=== PATIENT | female | born 1955 | race Caucasian/White ===

== ENCOUNTER → 2018-10-03 | Outpatient (CLI) | payer BC ==
[2018-10-03 12:06] LABS: Anion Gap 8 mmol/L; Blood Urea Nitrogen 19 mg/dL (7-17); Carbon Dioxide 28 mmol/L (22-30); Chloride 103 mmol/L (98-107); Potassium 4.7 mmol/L (3.5-5.1); Sodium 139 mmol/L (137-145)
[2018-10-03 12:07] LABS: Partial Thromboplastin Time 27.4 sec (22.0-30.0)
[2018-10-03 12:12] LABS: Appearance,Urine Clear (Clear); Bilirubin,Urine Negative (Negative); Blood,Urine Negative (Negative); Color,Urine Light Yellow; Glucose,Urine (UA) Negative (Negative); Ketones,Urine Negative (Negative); Leukocyte Esterase,Urine Negative (Negative); Nitrite,Urine Negative (Negative); PH, Urine 7.5 (5.0-8.0); Protein,Urine Negative (Negative); Specific Gravity,Urine 1.007 (1.001-1.035); Urobilinogen,Urine <2.0 mg/dL (<2.0)
[2018-10-03 12:13] LABS: HCT 36.4 % (34.0-46.0); MCH 28.6 pg (25.0-35.0); MCV 86.7 fL (80.0-100.0); Platelet Count 342 k/uL (150-450); RDW 14.5 % (11.5-15.5); WBC 7.2 k/uL (3.8-10.6)
== END | disposition home or self-care (01) ==
LOC: LABPAT 11:14
PROVIDERS: ATTEND Orthopaedic Surgery
DX: Z01.812 Encounter for preprocedural laboratory examination (principal)
CPT/HCPCS: 36415; 80051; 81003; 82565; 84520; 85027; 85610; 85730; 87070

== ENCOUNTER 2018-10-22 07:00 | Inpatient (IN) | payer BC ==
[~2018-10-22 07:00] MED LIST: ACETAMINOPHEN TAB 500 MG TAB PO ONE; DEXAMETHASONE SOD PHOSPHATE 10 MG/ML 1 ML VIAL IV ONE; MELOXICAM 7.5 MG TAB PO ONE; MIDAZOLAM 2 MG/2 ML VIAL IV PRN; ONDANSETRON 4 MG/2 ML VIAL IVP ONE; ROPIVACAINE 246.25 MG, EPINEPHrine 0.5 MG, KETOROLAC 30 MG, cloNIDine HCL/PF 80 MCG, WA... MISCELLANE ONE; TRANEXAMIC ACID 1,000 MG in SODIUM CHLORIDE 0.9% 50 ML IVPB ONE; ceFAZolin IN SWFI 2 GM/20 ML SYRINGE IVP ONE; fentaNYL (PF) 50 MCG/ML 2 ML AMP IV PRN
[2018-10-22] MEDS: LACTATED RINGERS 1,000 ML IV SCH ×2 (08:08→22:45)
[2018-10-22] MEDS ORDERED: LIDOCAINE 1% 20 ML VIAL (10MG/ML) FOR IV START INTRADERMA ONE (08:08)
[2018-10-22 08:10] LABS: Glucose,Whole Blood 112 mg/dL (75-99)
[2018-10-22] MEDS ORDERED: DIAZEPAM 5 MG TAB PO PRN (09:04)
[2018-10-22] MEDS ORDERED: NALOXONE 0.4 MG/ML 1 ML VIAL IV PRN (09:04)
[2018-10-22] MEDS ORDERED: HYDROmorphone 0.5 MG/0.5 ML SYRINGE IVP PRN ×2 (09:04)
[2018-10-22] MEDS ORDERED: MAGNESIUM HYDROXIDE 2,400 MG/10 ML CUP PO PRN (09:04)
[2018-10-22] MEDS ORDERED: HYDROcodone/APAP 5-325MG 1 EACH TAB PO PRN (09:04)
[2018-10-22] MEDS ORDERED: BISACODYL 10 MG SUPP RECTAL PRN (09:04)
[2018-10-22] MEDS ORDERED: ONDANSETRON 4 MG/2 ML VIAL IVP PRN (09:04)
[2018-10-22] MEDS ORDERED: NA PHOS,M-B/NA PHOS,DI-BA 133 ML ENEMA RECTAL PRN (09:04)
[2018-10-22] MEDS ORDERED: ROPIVACAINE 1,100 MG, SODIUM CHLORIDE 0.9% 500 ML 330 ML MISCELLANE PRN ×2 (09:08)
--- NOTE | 2018-10-22 09:09 | P.ONQ ---
Anesthesiology Proc Note - PNB - Peripheral Nerve Block Performed Right Adductor Canal Infusion Time Out Performed: Yes Procedure Start Time: 08:30 Indication: Acute Post-Operative Pain Sedation Type: Sedate with meaningful contact maintained Preparation: Sterile Prep Position: Supine Catheter Depth at Skin (cm): 8 Catheter: Indwelling Needle Types: Other (see comment) (Tristan) Needle Size: 100mm (4") Needle Gauge: 18 Technique: Ultrasound Injectate: 0.5% Ropivacaine (see comment for volume) (20cc) Blood Aspirated: No Pain Paresthesia on Injection Noted: No Resistance on Injection: Normal Events: Uneventful and Well Tolerated
[2018-10-22] MEDS ORDERED: SODIUM CHLORIDE 0.9% 100 ML BAG ONE (09:24)
[2018-10-22] MEDS ORDERED: MIDAZOLAM 2 MG/2 ML VIAL ONE (09:24)
[2018-10-22] MEDS ORDERED: TRANEXAMIC ACID 1,000 MG/10 ML VIAL ONE (09:24)
[2018-10-22] MEDS ORDERED: ceFAZolin 3,000 MG in SODIUM CHLORIDE 0.9% IRRIGATIO 3,000 ML IRRIGATION ONE (09:26)
--- NOTE | 2018-10-22 10:42 | P.OP ---
Date of Procedure: 10/22/18 Preoperative Diagnosis: Severe osteoarthritis right knee Postoperative Diagnosis: Severe osteoarthritis right knee Procedure(s) Performed: Right total knee arthroplasty Implants: Barrett and Nephew Journey II CR Oxinium cruciate retaining femoral component size 5, right Barrett & Nephew Journey right nonporous tibial baseplate size 4 Barrett [employer] Nephew Journey II, XLPE Deep Dished articular insert, size 12 mm, Size 3 -4 right Barrett & Nephew Journey BCS resurfacing oval patellar component, 32 mm All components were cemented using Palacos R bone cement.. The articulation is Oxinium on polyethylene. Anesthesia: spinal Surgeon: Wojciech Segovia Regional Owner Operator Truck Driver #1: Kaye Green Estimated Blood Loss (ml): 25 Pathology: other (Bone and cartilage) Condition: stable Disposition: PACU Indications for Procedure: After failure of conservative treatment we discussed the surgical and nonsurgical treatment options at length. Patient wishes to proceed with a total knee arthroplasty. Complications specific to this procedure were discussed at length, including but not limited to infection, bleeding, stiffness , and nerve injury. Patient is aware of all these complications and informed consent was obtained Operative Findings: The operative findings are consistent with severe osteoarthritis of the right knee Description of Procedure: Patient was seen in the preoperative area consent was reviewed and operative site was marked with a skin marker. An adductor canal pain catheter was placed by anesthesia in the preoperative area. Patient was then brought to the operating room and given preoperative antibiotics intravenously. A spinal anesthetic was administered by the anesthesia department. A tourniquet was placed on the upper thigh and the lower extremity was prepped and draped in usual sterile fashion. A gram of transexamic acid was given. A universal timeout was then performed which confirmed the patient's name, surgical site, ALLERGIES, and consent. The lower extremity was then exsanguinated and tourniquet was inflated to 250 mmHg. A standard and anterior midline approach to the knee was performed. The skin and subcutaneous tissue was dissected down to the patellar tendon. A medial parapatellar arthrotomy was then performed. The knee was then extended, the patellar was everted, and the knee was again flexed. Anterior horns of both menisci were excised, and a release was performed to the posterior medial aspect of the knee. On gross visual inspection, there was complete loss of articular cartilage in the medial and patellofemoral joint spaces. There was also significant cartilage damage in the lateral compartment. There were multiple periarticular osteophytes which were then removed with a Ronguer. The femoral canal was then opened with the appropriate drill, and the intramedullary femoral cutting guide was then placed and set for 5 of valgus. The distal femoral cutting block was then pinned in place, and the distal femur was then cut. The cutting block was then removed and the cut was checked for flatness. Next, the sizing guide was then placed and set for 3 external rotation based off of the epicondylar axis and Whitesides line. After the femur was sized, the appropriate 4-in-1 cutting block was then pinned in place. The anterior condyles were cut without notching. The posterior and chamfer cuts were performed while protecting the collateral ligaments. The cutting block was then removed, and the femoral canal was plugged with autologous bone. Attention was then directed to the tibia. The remaining ACL was removed with a Ronguer, and the tibia was then gently subluxed forward with a large bent knee retractor. Any remaining menisci was excised. The posterior lateral corner was cauterized in order to cauterize the lateral geniculate artery. The extra medullary tibial cutting guide was then placed, set for the appropriate rotation , slope, and depth of resection. The proximal tibia cutting guide was then pinned in place. Proximal tibia was then cut and sized. Next trials were then placed with the appropriate-sized insert. The knee was able to fully extend and flex to 130 and was stable throughout all range of motion. The knee was then extended, patella everted. Patella was then measured, and then using an osteotomy guide, the patella was cut at the appropriate level. The patella was then measured and drilled and the patella trial was then placed. The knee was then taken through range of motion with the patella trial and the patella tracked normally. The knee was then extended patella trial was then removed and the patella was everted. Knee was then flexed and lug holes were drilled through the femoral trial and the femoral trial was then removed. The tibial was then exposed, and the tibial broach guide was then pinned in place after it was set for the appropriate rotation to allow for the most coverage without overhang. The tibia was then reamed and broached. The cut surfaces of bone were then irrigated with pulsatile lavage. The posterior structures were injected with the ropivacaine solution. The knee was also irrigated with Irrisept solution. The components were then opened, the cement was mixed, and the components were then cemented in place. The cement was allowed to harden with the knee in full extension. While the cement was hardening, the remaining soft tissues were then injected with a ropivacaine solution, which consisted of 246.25 mg of ropivacaine, 0.5 mg of epinephrine, 30 mg of Toradol, 80 g of clonidine, and 48.45 mL of sterile water, for a total of 100 mL of fluid injected. After the cemented hardened. The tourniquet was released, and hemostasis was obtained. A second gram of transexamic acid was given. The knee was again irrigated. The knee was again taken through range of motion and found to be stable throughout all range of motion of 0-130 , and the patella tracked normally. The fascia was then closed with #2 strata fix suture. The subcutaneous tissue was closed with 3-0 Vicryl and 3-0 strata fix. Dermabond glue was used for the skin and placed with the knee in flexion. The patient was placed in a sterile silver dressing. Patient was then transferred to recovery room in stable condition. The pastry assistant ISAIAS Aj was required due the complexity surgery and the need for a skilled medical surgical tech. She assisted in positioning, draping, retraction, and closure of the wound.
[2018-10-22] MEDS ORDERED: LACTATED RINGERS 1,000 ML IV ONE (11:06)
[2018-10-22 11:55] LABS: Glucose,Whole Blood 133 mg/dL (75-99)
--- NOTE | 2018-10-22 11:58 | XR ---
EXAMINATION TYPE: XR knee limited RT DATE OF EXAM: 10/22/2018 CLINICAL HISTORY: Postoperative evaluation Two views of the right knee are submitted. Identified are changes of total knee arthroplasty with femoral and tibial components appearing well seated. Postsurgical soft tissue changes are noted. Alignment is anatomic.
[2018-10-22] MEDS: SODIUM CHLORIDE 0.9% 1,000 ML IV SCH ×2 (14:03→22:47)
--- NOTE | 2018-10-22 15:09 | P.CONS ---
History of Present Illness - Reason for Consult Consult date: 10/22/18 Medical management Requesting physician: Wojciech Segovia - Chief Complaint Right knee pain - History of Present Illness 63-year-old female with PMH of hypertension, osteoarthritis, hyperlipidemia, diabetes mellitus, depression presents to [facility] for elective right total knee replacement. Patient was seen and examined after her surgery. She is postop day 0. No acute events overnight. Patient reports discomfort behind her right knee. She denies any fever or chills. She denies any chest pain, shortness of breath or palpitations. Review of Systems All systems: negative Past Medical History Past Medical History: Diabetes Mellitus, Fibromyalgia, GERD/Reflux, Hyperlipidemia, Hypertension, Rheumatoid Arthritis (RA) Additional Past Medical History / Comment(s): OSTEOPOROSIS. DEGNERATIVE JOINT DISEASE IN NECK/CHRONIC PAIN. NEUROPATHY IN HANDS & FEET. HISTORY OF FALLS WITH NERUOPATHY. BECAME SEPTIC POST TONSILITIS AND WAS IN ICU IN THE PAST. CARPAL TUNNEL SYNDROME. CERVICAL /LUMBAR RADICULOMOTHY. ANEMIA. RAYNAUD'S. INCONTINENT(USES PAD/PANTIES). History of Any Multi-Drug Resistant Organisms: None Reported Past Surgical History: Adenoidectomy, Breast Surgery, Hysterectomy, Tonsillectomy Additional Past Surgical History / Comment(s): LEFT CARPAL TUNNEL/MASS. JU BREAST BIOPSY/NEG. Past Anesthesia/Blood Transfusion Reactions: No Reported Reaction Past Psychological History: Anxiety, Depression Smoking Status: Current every day smoker Past Alcohol Use History: None Reported Additional Past Alcohol Use History / Comment(s): 3/4 PPD FOR TOO LONG. Past Drug Use History: Marijuana Additional Drug Use History / Comment(s): USES FOR PAIN CONTROL. - Past Family History Mother Family Medical History: No Reported History Medications and Allergies Home Medications Medication Instructions Recorded Confirmed Type Alendronate Sodium [Fosamax] 70 mg PO MO 10/19/18 10/22/18 History Aspirin 325 mg PO HS 10/19/18 10/22/18 History Baclofen [Lioresal] 10 mg PO TID 10/19/18 10/22/18 History DULoxetine HCL [Cymbalta] 30 mg PO QAM 10/19/18 10/22/18 History Enalapril [Vasotec] 5 mg PO HS 10/19/18 10/22/18 History Fenofibrate 160 mg PO HS 10/19/18 10/22/18 History Ferrous Sulfate [Iron] 325 mg PO DAILY 10/19/18 10/22/18 History Galcanezumab-Gnlm [Emgality] 120 mg IM Q30D 10/19/18 10/22/18 History Hydrochlorothiazide 25 mg PO QAM 10/19/18 10/22/18 History Labetalol [Trandate] 100 mg PO BID 10/19/18 10/22/18 History Omeprazole 20 mg PO HS 10/19/18 10/22/18 History Pregabalin [Lyrica] 150 mg PO TID 10/19/18 10/22/18 History Sertraline [Zoloft] 100 mg PO HS 10/19/18 10/22/18 History Simvastatin 40 mg PO HS 10/19/18 10/22/18 History metFORMIN HCL 1,000 mg PO BID 10/19/18 10/22/18 History Allergies Allergy/AdvReac Type Severity Reaction Status Date / Time Tetracyclines AdvReac Rash/Hives Verified 10/22/18 14:52 Physical Exam Vitals: Vital Signs Temp Pulse Pulse Resp BP BP Pulse Ox 10/22/18 13:56 16 10/22/18 12:15 76 16 151/85 94 L 10/22/18 12:03 74 16 151/79 97 10/22/18 11:45 68 16 142/71 96 10/22/18 11:30 86 18 143/84 96 10/22/18 11:15 89 16 130/74 10/22/18 11:12 98.2 F 88 20 130/74 94 L 10/22/18 08:50 66 16 120/69 98 10/22/18 07:30 98.7 F 73 16 126/65 96 Intake and Output 10/21/18 10/22/18 10/22/18 22:59 06:59 14:59 Intake Total 751 Output Total 25 Balance 726 Intake: IV 751 Output: Estimated Blood Loss 25 General: [non toxic], [no distress], [appears at stated age] Derm: [warm], [dry] Head: [atraumatic], [normocephalic], [symmetric] Eyes: [EOMI], [no lid lag], [anicteric sclera] Mouth: [no lip lesion], [mucus membranes moist] Cardiovascular: [S1S2 reg], [no murmur] Lungs: [CTA bilateral], [no rhonchi, no rales] , [no accessory muscle use] Abdominal: [soft], [ nontender to palpation], [no guarding], [no appreciable organomegaly] Ext: [no gross muscle atrophy], [no edema], [no contractures], [right knee wrapped] Neuro: [no focal neuro deficits] Psych: [Alert], [oriented], [appropriate affect] Results Labs: Abnormal Lab Results - Last 24 Hours (Table) 10/22/18 10/22/18 Range/Units 08:06 11:52 POC Glucose (mg/dL) 112 H 133 H (75-99) mg/dL Assessment and Plan Assessment: Assessment and Plan 1. Right knee osteoarthritis 2. Hypertension 3. Hyperlipidemia 4. Depression 5. Fibromyalgia 1. Patient is postop day 0. Pain management with [place], Dilaudid IV for severe pain. Cefazolin 2 g IV 2 doses. Continue meloxicam. Weightbearing as per orthopedic recommendations. Right upper extremity elevation. Ice pack as tolerated. Will follow PT, OT and orthopedic recommendations. 2. BP is 151/85. Continue hydrochlorothiazide 25 mg by mouth daily, labetalol 100 mg by mouth twice a day, lisinopril 10 mg by mouth at bedtime. Monitor vitals, adjust medications as necessary. 3. Continue fenofibrate 160 mg by mouth at bedtime. Continue aspirin 325 mg by mouth at bedtime, Lipitor 20 mg by mouth at bedtime for ASCVD risk. 4. Stable. Continue sertraline and Cymbalta. 5. Pain management as above. Continue Cymbalta 30 mg by mouth daily, baclofen 10 mg by mouth 3 times a day. Diazepam 2.5 mg by mouth 3 times a day as needed for muscle spasms. Patient admitted after right total knee replacement. Pain management as above. Will follow orthopedic recommendations. Thank you for the consult, please call for additional questions or concerns.
[2018-10-22] MEDS: PREGABALIN 75 MG CAP PO SCH ×2 (15:35→21:52)
[2018-10-22] MEDS: NICOTINE 14MG/24HR PATCH TRANSDERM SCH (15:36)
[2018-10-22] MEDS: BACLOFEN 10 MG TAB PO SCH ×2 (15:36→21:52)
[2018-10-22] MEDS: ceFAZolin IN SWFI 2 GM/20 ML SYRINGE IVP SCH (16:08)
[2018-10-22] MEDS: HYDROcodone/APAP 5-325MG 1 EACH TAB PO PRN (16:08)
[2018-10-22 17:15] LABS: Glucose,Whole Blood 198 mg/dL (75-99)
[2018-10-22] MEDS: HYDROmorphone 1 MG/ML 1 ML SYRINGE IVP PRN ×2 (18:00→22:45)
[2018-10-22 20:38] LABS: Glucose,Whole Blood 122 mg/dL (75-99)
[2018-10-22] MEDS ORDERED: FENOFIBRATE 160 MG TAB PO SCH (21:00)
[2018-10-22] MEDS ORDERED: ATORVASTATIN 20 MG TAB PO SCH (21:00)
[2018-10-22] MEDS ORDERED: ASPIRIN 325 MG TAB PO SCH (21:00)
[2018-10-22] MEDS ORDERED: SENNOSIDES-DOCUSATE SODIUM 1 EACH TAB PO SCH (21:00)
[2018-10-22] MEDS ORDERED: LISINOPRIL 10 MG TAB PO SCH (21:00)
[2018-10-22] MEDS ORDERED: SERTRALINE 100 MG TAB PO SCH (21:00)
[2018-10-22] MEDS: LABETALOL 100 MG TAB PO SCH (21:51)
[2018-10-22] MEDS: INSULIN ASPART 100 UNIT/ML 1 ML 10 ML VIAL SQ SCH (21:51)
[2018-10-22] MEDS: ASPIRIN 325 MG TAB PO SCH (21:52)
[2018-10-22] MEDS ORDERED: CALCIUM CARBONATE LIQUID 500 MG/5 ML CUP PO PRN (22:57)
[2018-10-22] MEDS: PANTOPRAZOLE 40 MG TABLET PO SCH (23:33)
[2018-10-23] MEDS: ceFAZolin IN SWFI 2 GM/20 ML SYRINGE IVP SCH (02:10)
[2018-10-23] MEDS: HYDROcodone/APAP 5-325MG 1 EACH TAB PO PRN (02:11)
[2018-10-23] MEDS: hydrOXYzine PAMOATE 25 MG CAP PO PRN ×2 (02:11→13:27)
[2018-10-23] MEDS: HYDROmorphone 1 MG/ML 1 ML SYRINGE IVP PRN ×2 (04:34→07:27)
[2018-10-23 06:52] LABS: Glucose,Whole Blood 122 mg/dL (75-99)
[2018-10-23 06:53] VITALS: BP 91/64; PULSE 67; RESP 18; TEMP 97.8
[2018-10-23] MEDS: PREGABALIN 75 MG CAP PO SCH (06:53)
[2018-10-23] MEDS: BACLOFEN 10 MG TAB PO SCH (06:54)
[2018-10-23] MEDS: ASPIRIN 325 MG TAB PO SCH (06:54)
[2018-10-23] MEDS: LABETALOL 100 MG TAB PO SCH (06:55)
[2018-10-23] MEDS: PANTOPRAZOLE 40 MG TABLET PO SCH (06:58)
[2018-10-23] MEDS: INSULIN ASPART 100 UNIT/ML 1 ML 10 ML VIAL SQ SCH ×2 (06:59→11:47)
[2018-10-23] MEDS: NICOTINE 14MG/24HR PATCH TRANSDERM SCH (06:59)
--- NOTE | 2018-10-23 06:59 | P.PN ---
Progress Note - Text Progress Note Date: 10/23/18 Postoperative day # 1 status post right total knee arthroplasty, under spinal anesthesia, and adductor canal catheter placed for postoperative analgesia, currently at ropivacaine 0.2% 10 mL per hour and continuous infusion, patient requiring IV Dilaudid pain medication for breakthrough pain. Assessment and plan= Acute postoperative pain, adductor canal catheter for pain control, pain is controlled we'll continue the same management.
[2018-10-23 07:29] LABS: Basophils % (A) 0 %; Eosinophils # (A) 0.1 k/uL (0-0.7); Eosinophils % (A) 1 %; HCT 27.4 % (34.0-46.0); Lymphocytes # (A) 2.1 k/uL (1.0-4.8); Lymphocytes % (A) 24 %; MCH 28.6 pg (25.0-35.0); MCHC 32.6 g/dL (31.0-37.0); MCV 87.7 fL (80.0-100.0); Mean Platelet Volume 7.3; Monocytes # (A) 0.6 k/uL (0-1.0); Monocytes % (A) 7 %; Neutrophils # (A) 5.7 k/uL (1.3-7.7); Neutrophils % (A) 66 %; Platelet Count 293 k/uL (150-450); RBC 3.13 m/uL (3.80-5.40); RDW 14.3 % (11.5-15.5); WBC 8.6 k/uL (3.8-10.6)
[2018-10-23 07:51] LABS: HGB 8.9 gm/dL (11.4-16.0)
[2018-10-23] MEDS ORDERED: HYDROCHLOROTHIAZIDE 25 MG TAB PO SCH (09:00)
[2018-10-23] MEDS ORDERED: MELOXICAM 7.5 MG TAB PO SCH (09:00)
[2018-10-23] MEDS ORDERED: DULoxetine HCL 30 MG CAPSULE.DR PO SCH (09:00)
[2018-10-23] MEDS ORDERED: HYDROcodone/APAP 7.5-325MG 1 EACH TAB PO PRN ×2 (09:25)
--- NOTE | 2018-10-23 09:30 | P.DS ---
Providers Date of admission: 10/22/18 07:19 Expected date of discharge: 10/23/18 Attending physician: Wojciech Segovia Consults: 10/22/18 09:04 Consult Physician Routine Consulting Provider: Jonn Day Consult Reason/Comments: medical management Do you want consulting provider notified?: Yes 10/22/18 11:24 Consult Physician Routine Consulting Provider: Kvng Santana Consult Reason/Comments: medical management Do you want consulting provider notified?: Already Contacted Primary care physician: Jonn Day - Discharge Diagnosis(es) (1) Primary osteoarthritis of right knee Current Visit: Yes Status: Acute (2) Status post total right knee replacement Current Visit: Yes Status: Acute Hospital Course: This is a 63-year-old female with known history of degenerative arthritis of the right knee. The patient presents for evaluation. After discussion and consideration patient elects to proceed with total knee arthroplasty. The patient is seen preoperatively by Dr. Segovia and medically cleared for surgery by their primary care physician. Patient is admitted to [facility] on 10/22/2018 for total knee arthroplasty. The procedures performed without complication or sequelae. The patient is doing well postoperatively. Labs and vital signs are stable on day of discharge. On day of discharge patient's knee incision is healing well. There is minimal erythema. There is no drainage noted at this time. There is minimal soft tissue swelling to the knee. Patient has full foot and ankle motion without difficulty or pain. Neurovascular status to the right lower extremity is intact. Patient is discharged home in good condition. Please see med rec for accurate list of home medications. Plan - Discharge Summary Discharge Rx Participant: Yes New Discharge Prescriptions: New Aspirin 325 mg PO BID #60 tab HYDROcodone/APAP 7.5-325MG [[place] 7.5-325] 1 - 2 tab PO Q6H PRN #56 tab PRN Reason: Pain hydrOXYzine PAMOATE [Vistaril] 25 mg PO Q6H PRN #30 capsule PRN Reason: Pain No Action metFORMIN HCL 1,000 mg PO BID Pregabalin [Lyrica] 150 mg PO TID Baclofen [Lioresal] 10 mg PO TID Ferrous Sulfate [Iron] 325 mg PO DAILY Aspirin 325 mg PO HS Sertraline [Zoloft] 100 mg PO HS DULoxetine HCL [Cymbalta] 30 mg PO QAM Omeprazole 20 mg PO HS Hydrochlorothiazide 25 mg PO QAM Enalapril [Vasotec] 5 mg PO HS Alendronate Sodium [Fosamax] 70 mg PO MO Simvastatin 40 mg PO HS Fenofibrate 160 mg PO HS Labetalol [Trandate] 100 mg PO BID Galcanezumab-Gnlm [Emgality] 120 mg IM Q30D Discharge Medication List Alendronate Sodium [Fosamax] 70 mg PO MO 10/19/18 [History] Aspirin 325 mg PO HS 10/19/18 [History] Baclofen [Lioresal] 10 mg PO TID 10/19/18 [History] DULoxetine HCL [Cymbalta] 30 mg PO QAM 10/19/18 [History] Enalapril [Vasotec] 5 mg PO HS 10/19/18 [History] Fenofibrate 160 mg PO HS 10/19/18 [History] Ferrous Sulfate [Iron] 325 mg PO DAILY 10/19/18 [History] Galcanezumab-Gnlm [Emgality] 120 mg IM Q30D 10/19/18 [History] Hydrochlorothiazide 25 mg PO QAM 10/19/18 [History] Labetalol [Trandate] 100 mg PO BID 10/19/18 [History] Omeprazole 20 mg PO HS 10/19/18 [History] Pregabalin [Lyrica] 150 mg PO TID 10/19/18 [History] Sertraline [Zoloft] 100 mg PO HS 10/19/18 [History] Simvastatin 40 mg PO HS 10/19/18 [History] metFORMIN HCL 1,000 mg PO BID 10/19/18 [History] Aspirin 325 mg PO BID #60 tab 10/23/18 [Rx] HYDROcodone/APAP 7.5-325MG [[place] 7.5-325] 1 - 2 tab PO Q6H PRN #56 tab [Rx] hydrOXYzine PAMOATE [Vistaril] 25 mg PO Q6H PRN #30 capsule 10/23/18 [Rx] Follow up Appointment(s)/Referral(s): Wojciech Segovia DO [Doctor of Osteopathic Medicine] - 2 Weeks Ambulatory/Diagnostic Orders: Continuous Passive Motion (CPM) Machine [DME.AMB1] Time Frame: 3 Weeks, Location : None Selected Activity/Diet/Wound Care/Special Instructions: Weightbearing as tolerated with a walker. CPM 5-6h daily. Leave dressing intact. May be removed by home care nurse in 10 days. May shower with dressing on. Please follow up with [facility] and call with any questions or concerns, . Discharge Disposition: HOME WITH HOME HEALTH SERVICES
[2018-10-23 11:36] LABS: Glucose,Whole Blood 85 mg/dL (75-99)
[2018-10-23] MEDS ORDERED: FERROUS SULFATE 325 MG TAB PO SCH (12:00)
== END 2018-10-23 13:32 | disposition home health service (06) | DRG 470 ==
LOC: 2ORMAIN 07:19 → 4SSUR 11:18
PROVIDERS: ADMIT Orthopaedic Surgery; ATTEND Orthopaedic Surgery
PROC: 0SRC069 Replacement of Right Knee Joint with Oxidized Zirconium on Polyethylene Synthetic Substitute, Cemented, Open Approach (ICD-10-PCS; principal; 2018-10-22 09:15)
DX: M17.11 Unilateral primary osteoarthritis, right knee (principal); E11.42 Type 2 diabetes mellitus with diabetic polyneuropathy; M06.9 Rheumatoid arthritis, unspecified; M79.7 Fibromyalgia; I10 Essential (primary) hypertension; E78.5 Hyperlipidemia, unspecified; M81.0 Age-related osteoporosis without current pathological fracture; G89.29 Other chronic pain; M54.16 Radiculopathy, lumbar region; I73.00 Raynaud's syndrome without gangrene; R32 Unspecified urinary incontinence; F41.8 Other specified anxiety disorders; F32.9 Major depressive disorder, single episode, unspecified; K21.9 Gastro-esophageal reflux disease without esophagitis; H91.90 Unspecified hearing loss, unspecified ear; R26.81 Unsteadiness on feet; F41.9 Anxiety disorder, unspecified; G25.81 Restless legs syndrome; F17.210 Nicotine dependence, cigarettes, uncomplicated; M47.22 Other spondylosis with radiculopathy, cervical region; R63.5 Abnormal weight gain; Z68.27 Body mass index [BMI] 27.0-27.9, adult; Z91.81 History of falling; Z90.49 Acquired absence of other specified parts of digestive tract; Z90.710 Acquired absence of both cervix and uterus; Z98.890 Other specified postprocedural states; Z79.82 Long term (current) use of aspirin; Z83.3 Family history of diabetes mellitus; Z79.899 Other long term (current) drug therapy; Z79.84 Long term (current) use of oral hypoglycemic drugs; Z79.83 Long term (current) use of bisphosphonates; Z88.1 Allergy status to other antibiotic agents; Z82.49 Family history of ischemic heart disease and other diseases of the circulatory system
CPT/HCPCS: 85025; 88300

== ENCOUNTER → 2018-10-31 | Outpatient (CLI) | payer BC ==
--- NOTE | 2018-10-31 11:04 | US ---
EXAMINATION TYPE: US venous doppler duplex LE RT DATE OF EXAM: 10/31/2018 10:48 AM COMPARISON: NONE CLINICAL HISTORY: M25.561 PAIN IN RT KNEE. S/P total knee 10/22/2017 SIDE PERFORMED: Right TECHNIQUE: The lower extremity deep venous system is examined utilizing real time linear array sonog efrain with graded compression, doppler sonography and color-flow sonography. VESSELS IMAGED: External Iliac Vein (EIV) Common Femoral Vein Deep Femoral Vein Greater Saphenous Vein * Femoral Vein Popliteal Vein Small Saphenous Vein * Proximal Calf Veins (* superficial vessels) Physician requested greater saphenous and posterior tibials also, no thrombus. Right Leg: Negative for DVT IMPRESSION: No evidence of DVT.
== END | disposition home or self-care (01) ==
LOC: RADUSWWP 10:23
PROVIDERS: ATTEND Orthopaedic Surgery
DX: Z47.1 Aftercare following joint replacement surgery (principal); M25.561 Pain in right knee; E10.9 Type 1 diabetes mellitus without complications; I10 Essential (primary) hypertension; F17.200 Nicotine dependence, unspecified, uncomplicated; Z96.651 Presence of right artificial knee joint

== ENCOUNTER 2020-05-06 06:59 | Day surgery (SDC) | payer MEDICARE, BC ==
[2020-04-30 10:10] VITALS: BMI 25.8
[~2020-05-06 06:59] MED LIST changes: -ACETAMINOPHEN TAB 500 MG TAB PO ONE; +CYCLOPENTOLATE 1% OPHTH SOLN 2 ML BTL OP ONE; -DEXAMETHASONE SOD PHOSPHATE 10 MG/ML 1 ML VIAL IV ONE; +LACTATED RINGERS 1,000 ML IV SCH; -MELOXICAM 7.5 MG TAB PO ONE; -MIDAZOLAM 2 MG/2 ML VIAL IV PRN; +MOXIFLOXACIN HCL 0.5% DROPS 3 ML BTL OP ONE; -ONDANSETRON 4 MG/2 ML VIAL IVP ONE; +PHENYLEPHRINE 2.5% OPHTH DRP 2ML OP NR; -ROPIVACAINE 246.25 MG, EPINEPHrine 0.5 MG, KETOROLAC 30 MG, cloNIDine HCL/PF 80 MCG, WA... MISCELLANE ONE; +TETRACAINE 0.5% OPHTH (PF) DROPS 4 ML BTL OP ONE; +TIMOLOL 0.5% OPHTH DROPS 5 ML BTL OP ONE; -TRANEXAMIC ACID 1,000 MG in SODIUM CHLORIDE 0.9% 50 ML IVPB ONE; -ceFAZolin IN SWFI 2 GM/20 ML SYRINGE IVP ONE; -fentaNYL (PF) 50 MCG/ML 2 ML AMP IV PRN
[2020-05-06 07:37] VITALS: TEMP 97.3
[2020-05-06 07:49] LABS: Glucose,Whole Blood 105 mg/dL (75-99)
[2020-05-06] MEDS ORDERED: LACTATED RINGERS 1,000 ML IV ONE ×2 (08:00→08:30)
[2020-05-06] MEDS ORDERED: MIDAZOLAM 2 MG/2 ML VIAL ONE (08:18)
[2020-05-06] MEDS ORDERED: TRYPAN BLUE 0.06% SYRINGE 0.5 ML SYRINGE INTRAOCULA ONE (08:20)
[2020-05-06] MEDS ORDERED: LIDOCAINE 1% (PF) 10MG/ML VIAL SQ ONE (08:20)
[2020-05-06] MEDS ORDERED: DUOVISC KIT (GREEN BOX) INTRAOCULA ONE (08:20)
[2020-05-06] MEDS ORDERED: BALANCED SALT IRRIG SOLN COMB2 15 ML IRRIG.SOLN INTRAOCULA ONE (08:20)
[2020-05-06] MEDS ORDERED: EPINEPHrine (PF) 0.3 ML in BALANCED SALT IRRIG SOLN COMB2 500 ML IRRIGATION ONE (08:31)
--- NOTE | 2020-05-06 08:44 | P.OP ---
Date of Procedure: 05/06/20 Preoperative Diagnosis: NS & CS Postoperative Diagnosis: same Procedure(s) Performed: PIOL, OD Implants: MX60 21.50 Anesthesia: MAC Surgeon: Pelon Ahmadi Pathology: none sent Condition: stable Disposition: same day Indications for Procedure: blurry vision Operative Findings: no complications
[2020-05-06 08:51] VITALS: RESP 18
[2020-05-06 09:10] VITALS: BP 161/94; PULSE 78
--- NOTE | 2020-05-07 01:42 | OP ---
OPERATIVE REPORT DATE OF SURGERY: 05/06/2020. SURGEON: Pelon Ahmadi MD PREOPERATIVE DIAGNOSIS: Nuclear sclerosis, cortical sclerosis. POSTOPERATIVE DIAGNOSIS: Nuclear sclerosis, cortical sclerosis. OPERATION: Phacoemulsification of cataract and intraocular lens implant to the right eye. ESTIMATED BLOOD LOSS: Zero. SPECIMEN TAKEN: None. NARRATIVE: After obtaining the appropriate consent, the patient was brought to the Operating Room where the patient was placed under cardiac monitoring and prepped and draped in the usual sterile manner. At the 11 o'clock position a 15 degree super sharp blade was used to create a paracentesis followed by instillation of 1% Xylocaine MPF 50:50 mix with BSS into the anterior chamber. This was followed by Duovisc to stabilize the anterior chamber. At the 9 o'clock position a self-sealing corneal flap incision was created using 2.8 mm janice keratome. A cystotome was used to initiate a continuous tear capsulorrhexis which was completed with the Utrata forceps. A Binkhorst cannula was used to hydrodissect the lens nucleus followed by hydrodelineation. Phacoemulsification of the lens was performed utilizing phaco chop in 15.66 seconds at 21% power. The remaining cortical material was removed using the irrigation aspiration mode followed by additional 1% Xylocaine MPF into the anterior chamber followed by viscoelastic to stabilize the capsular bag. A Bausch and Lomb MX60E 21.5 diopters posterior chamber lens was placed into the capsular bag without difficulty. The remaining viscoelastic material was removed from the anterior chamber with the irrigation/aspiration. Balanced salt solution was used to normalize the intraocular pressure. The incision was checked for watertight integrity. The patient then received two drops of 0.5% timolol followed by two drops Vigamox, was lightly patched and shielded in the usual manner. There were no complications from the procedure. The patient tolerated the procedure well and was returned to recovery in good condition. MMODL / IJN: [id number] /
== END 2020-05-06 09:33 | disposition home or self-care (01) ==
LOC: OR 06:59
PROVIDERS: ATTEND Ophthalmology
DX: H25.13 Age-related nuclear cataract, bilateral (principal); H25.013 Cortical age-related cataract, bilateral; H52.13 Myopia, bilateral; H52.4 Presbyopia; E11.319 Type 2 diabetes mellitus with unspecified diabetic retinopathy without macular edema; E11.42 Type 2 diabetes mellitus with diabetic polyneuropathy; I10 Essential (primary) hypertension; F41.9 Anxiety disorder, unspecified; F32.9 Major depressive disorder, single episode, unspecified; G43.909 Migraine, unspecified, not intractable, without status migrainosus; L40.50 Arthropathic psoriasis, unspecified; M06.9 Rheumatoid arthritis, unspecified; M19.90 Unspecified osteoarthritis, unspecified site; M79.7 Fibromyalgia; Z79.82 Long term (current) use of aspirin; Z79.84 Long term (current) use of oral hypoglycemic drugs; Z79.899 Other long term (current) drug therapy; K21.9 Gastro-esophageal reflux disease without esophagitis; D64.9 Anemia, unspecified; Z83.511 Family history of glaucoma; Z83.518 Family history of other specified eye disorder; Z82.61 Family history of arthritis; Z83.3 Family history of diabetes mellitus; Z82.49 Family history of ischemic heart disease and other diseases of the circulatory system; Z88.1 Allergy status to other antibiotic agents; J44.9 Chronic obstructive pulmonary disease, unspecified; F17.210 Nicotine dependence, cigarettes, uncomplicated; E78.5 Hyperlipidemia, unspecified; Z90.710 Acquired absence of both cervix and uterus; Z90.89 Acquired absence of other organs; Z98.890 Other specified postprocedural states
CPT/HCPCS: 66984; C1780; J2250; J0171; J2001

== ENCOUNTER 2020-06-17 06:03 | Day surgery (SDC) | payer MEDICARE, BC ==
[2020-06-16 10:07] VITALS: BMI 24.7
[~2020-06-17 06:03] MED LIST changes: +DEXAMETHASONE SOD PHOSPHATE 10 MG/ML 1 ML VIAL IV ONE; +MIDAZOLAM 2 MG/2 ML VIAL IV PRN; +ONDANSETRON 4 MG/2 ML VIAL IVP ONE; +fentaNYL (PF) 50 MCG/ML 2 ML AMP IV PRN; +fentaNYL (PF) 50 MCG/ML 2 ML AMP IVP PRN
[2020-06-17 06:53] VITALS: RESP 16
[2020-06-17] MEDS ORDERED: LIDOCAINE 1% (10MG/ML) FOR IV START INTRADERMA ONE (07:07)
[2020-06-17 07:14] LABS: Glucose,Whole Blood 100 mg/dL (75-99)
[2020-06-17] MEDS ORDERED: fentaNYL (PF) 50 MCG/ML 2 ML AMP ONE (07:25)
[2020-06-17] MEDS ORDERED: MIDAZOLAM 2 MG/2 ML VIAL ONE (07:25)
[2020-06-17] MEDS ORDERED: EPINEPHrine (PF) 0.3 ML in BALANCED SALT IRRIG SOLN COMB2 500 ML IRRIGATION ONE (07:41)
[2020-06-17] MEDS ORDERED: BALANCED SALT IRRIG SOLN COMB2 15 ML IRRIG.SOLN INTRAOCULA ONE (07:43)
[2020-06-17] MEDS ORDERED: DUOVISC KIT (GREEN BOX) INTRAOCULA ONE (07:43)
[2020-06-17] MEDS ORDERED: LIDOCAINE 1% (PF) 10MG/ML VIAL MISCELLANE ONE (07:44)
--- NOTE | 2020-06-17 08:00 | P.OP ---
Date of Procedure: 06/17/20 Preoperative Diagnosis: NS & CS Postoperative Diagnosis: same Procedure(s) Performed: PIOL, OS Implants: MX60 21.00 Anesthesia: MAC Surgeon: Pelon Ahmadi Pathology: none sent Condition: stable Disposition: same day Indications for Procedure: blurry vision Operative Findings: No complications
[2020-06-17 08:22] VITALS: BP 143/79; PULSE 65
--- NOTE | 2020-06-18 06:20 | OP ---
OPERATIVE REPORT DATE OF PROCEDURE: 06/17/2020 PREOPERATIVE DIAGNOSIS: Nuclear sclerosis and cortical sclerosis. POSTOPERATIVE DIAGNOSIS: Nuclear sclerosis and cortical sclerosis. OPERATION: Phacoemulsification of cataract and Crystalens implant of the left eye. NARRATIVE: After obtaining the appropriate consent, the patient was brought to the operating room. There the patient was placed under cardiac monitoring, prepped and draped in the usual sterile manner. The patient was approached from the left temporal side. The mm Hussain ring inked in gentian vivian was placed centrally on the cornea. At the 11 o'clock position, a 1.1 mm keratome was used to create a paracentesis port. Through this opening, 1% Xylocaine MPF 50/50 mix with balanced salt solution was injected into the anterior chamber. This was followed by stabilization of the anterior chamber with Duovisc viscoelastic. At the 9 o'clock position, a 2.75 mm janice keratome was used to create a self-scaling corneal flap incision in a Langerman fashion. Through this opening, a cystotome was introduced to begin a continuous tear capsulorrhexis which was completed using the Utrata forceps. Care was taken to ensure that the capsulorrhexis was at least the size of the deondre on the anterior cornea. Hydrodissection and hydrodelineation of the lens was accomplished with balanced salt solution. Phacoemulsification of the lens utilizing phaco chop was accomplished in 14.64 Seconds at 21% power. Addition Xylocaine MPF was instilled into the anterior chamber. This was followed by removal of the remaining cortex under irrigation and aspiration along with careful polishing of the posterior capsule in a capsule vacuum mode. Additional Duovisc viscoelastic was then used to stabilize the capsular bag, and the Bausch and Lomb MX60E 21.0 diopters. Intraocular lens was injected into the capsular bag without difficulty. The lens was rotated 270 degrees so that the haptics resided at the 6 and 12 o'clock positions, and all remaining viscoelastic was then removed from within the capsular bag and around the anterior chamber. The eye was brought to normal intraocular pressure through the paracentesis port along with slight hydration of the incision sites. Watertight integrity was confirmed using a fluorescein strip. The patient then received 2 drops of 0.5% timolol followed by 2 drops of Vigamox and 2 drops of 1% atropine. The patient was then lightly patched and shielded in the usual manner. There was no complications from the procedure. The patient tolerated the procedure well and was returned to outpatient recovery in good condition. MMANDREA / CRISTAL: [id number] /
== END 2020-06-17 08:38 | disposition home or self-care (01) ==
LOC: OR 06:03
PROVIDERS: ATTEND Ophthalmology
DX: H25.12 Age-related nuclear cataract, left eye (principal); H25.012 Cortical age-related cataract, left eye; H52.13 Myopia, bilateral; H52.4 Presbyopia; I10 Essential (primary) hypertension; E78.5 Hyperlipidemia, unspecified; E11.319 Type 2 diabetes mellitus with unspecified diabetic retinopathy without macular edema; G43.909 Migraine, unspecified, not intractable, without status migrainosus; M19.90 Unspecified osteoarthritis, unspecified site; M06.9 Rheumatoid arthritis, unspecified; L40.50 Arthropathic psoriasis, unspecified; M79.7 Fibromyalgia; E11.42 Type 2 diabetes mellitus with diabetic polyneuropathy; F17.210 Nicotine dependence, cigarettes, uncomplicated; F41.9 Anxiety disorder, unspecified; F32.9 Major depressive disorder, single episode, unspecified; Z88.1 Allergy status to other antibiotic agents; Z79.84 Long term (current) use of oral hypoglycemic drugs; Z79.82 Long term (current) use of aspirin; Z79.899 Other long term (current) drug therapy; Z90.710 Acquired absence of both cervix and uterus; Z90.89 Acquired absence of other organs; Z96.651 Presence of right artificial knee joint; Z98.890 Other specified postprocedural states; Z98.41 Cataract extraction status, right eye; Z96.1 Presence of intraocular lens; K21.9 Gastro-esophageal reflux disease without esophagitis; D64.9 Anemia, unspecified; J30.2 Other seasonal allergic rhinitis; Z83.511 Family history of glaucoma; Z83.518 Family history of other specified eye disorder; Z82.61 Family history of arthritis; Z83.3 Family history of diabetes mellitus; Z82.49 Family history of ischemic heart disease and other diseases of the circulatory system; Z97.3 Presence of spectacles and contact lenses
CPT/HCPCS: 66984; C1780; J2250; J2405; J0171; J3010; J2001

== ENCOUNTER 2020-11-04 08:36 | Day surgery (SDC) | payer MEDICARE, BC ==
[2020-11-02 13:56] VITALS: BMI 26.6
[~2020-11-04 08:36] MED LIST changes: +ATROPINE OPHTH SOLN 1% 5ML BTL BOTH EYES PRN; -CYCLOPENTOLATE 1% OPHTH SOLN 2 ML BTL OP ONE; +CYCLOPENTOLATE 1% OPHTH SOLN 2 ML BTL OP PRN; -DEXAMETHASONE SOD PHOSPHATE 10 MG/ML 1 ML VIAL IV ONE; -LACTATED RINGERS 1,000 ML IV SCH; -MIDAZOLAM 2 MG/2 ML VIAL IV PRN; -MOXIFLOXACIN HCL 0.5% DROPS 3 ML BTL OP ONE; +MOXIFLOXACIN HCL 0.5% DROPS 3 ML BTL OP PRN; -ONDANSETRON 4 MG/2 ML VIAL IVP ONE; -PHENYLEPHRINE 2.5% OPHTH DRP 2ML OP NR; +PHENYLEPHRINE 2.5% OPHTH DRP 2ML OP PRN; -TETRACAINE 0.5% OPHTH (PF) DROPS 4 ML BTL OP ONE; +TETRACAINE 0.5% OPHTH (PF) DROPS 4 ML BTL OP PRN; -TIMOLOL 0.5% OPHTH DROPS 5 ML BTL OP ONE; +TIMOLOL 0.5% OPHTH DROPS 5 ML BTL OP PRN; -fentaNYL (PF) 50 MCG/ML 2 ML AMP IV PRN; -fentaNYL (PF) 50 MCG/ML 2 ML AMP IVP PRN
[2020-11-04 09:17] VITALS: TEMP 97.2
[2020-11-04] MEDS: LACTATED RINGERS 1,000 ML IV SCH ×2 (09:37→10:28)
[2020-11-04 09:38] LABS: Glucose,Whole Blood 82 mg/dL (75-99)
[2020-11-04] MEDS ORDERED: MIDAZOLAM 2 MG/2 ML VIAL ONE (10:26)
[2020-11-04] MEDS ORDERED: fentaNYL (PF) 50 MCG/ML 2 ML AMP ONE (10:26)
[2020-11-04] MEDS ORDERED: EPINEPHrine (PF) 0.3 ML in BALANCED SALT IRRIG SOLN COMB2 500 ML IRRIGATION ONE (10:35)
[2020-11-04] MEDS ORDERED: LIDOCAINE 1% (PF) 10MG/ML VIAL MISCELLANE ONE (10:38)
[2020-11-04] MEDS ORDERED: BALANCED SALT IRRIG SOLN COMB2 15 ML IRRIG.SOLN INTRAOCULA ONE (10:38)
--- NOTE | 2020-11-04 10:48 | P.OP ---
Date of Procedure: 11/04/20 Preoperative Diagnosis: lens remnant OS Postoperative Diagnosis: same Procedure(s) Performed: removal nuclear lens material Implants: none Anesthesia: MAC Surgeon: Pelon Ahmadi Pathology: none sent Condition: stable Disposition: same day Indications for Procedure: chronic irritation/uveitis Operative Findings: no complications
[2020-11-04 10:55] VITALS: RESP 16
[2020-11-04 11:15] VITALS: BP 147/85; PULSE 70
--- NOTE | 2020-11-04 20:54 | OP ---
OPERATIVE REPORT DATE OF SURGERY: 11/04/2020. PROCEDURE: Removal of lens remnant from cataract surgery. PREOPERATIVE DIAGNOSIS: Lens nuclear material remaining in the anterior chamber of the left eye. POSTOPERATIVE DIAGNOSIS: Lens nuclear material remaining in the anterior chamber of the left eye. SURGEON: Dr. Pelon Ahmadi. ANESTHESIA: Topical. ESTIMATED BLOOD LOSS: None. SPECIMEN TAKEN: None. NARRATIVE: After obtaining the appropriate consent, the patient was brought to the operating room. There she was placed under cardiac monitoring, prepped and draped in the usual sterile manner. She was approached from her left temporal side, and at the 5 o'clock position an MVR blade was used to create a paracentesis port. Through this opening 1% xylocaine MPF 50:50 mix with balanced salt solution was injected into the anterior chamber. This was followed by a temporal incision of 2.5 mm at the 3 o'clock position. Through this opening the irrigation/aspiration instrument was introduced into the anterior chamber and removed the remaining nuclear material that was lodged at about 5 o'clock in the patient's eye. The eye was then brought to normal intraocular pressure through the paracentesis port with balanced salt solution. The wounds were confirmed watertight. She then received 2 drops of moxifloxacin as well as 2 drops of 0.5% Timolol. She was then lightly patched and shielded in the usual manner. There were no complications from the procedure. She tolerated the procedure well and was returned to [facility] in good condition. MMODL / IJN: [id number] /
== END 2020-11-04 11:32 | disposition home or self-care (01) ==
LOC: OR 08:36
PROVIDERS: ATTEND Ophthalmology
DX: H59.022 Cataract (lens) fragments in eye following cataract surgery, left eye (principal); H20.22 Lens-induced iridocyclitis, left eye; H52.13 Myopia, bilateral; H52.4 Presbyopia; I10 Essential (primary) hypertension; F41.9 Anxiety disorder, unspecified; F32.9 Major depressive disorder, single episode, unspecified; G43.909 Migraine, unspecified, not intractable, without status migrainosus; E11.42 Type 2 diabetes mellitus with diabetic polyneuropathy; M19.90 Unspecified osteoarthritis, unspecified site; M06.9 Rheumatoid arthritis, unspecified; L40.50 Arthropathic psoriasis, unspecified; M79.7 Fibromyalgia; Z98.41 Cataract extraction status, right eye; Z98.42 Cataract extraction status, left eye; Z98.890 Other specified postprocedural states; Z96.651 Presence of right artificial knee joint; Z88.1 Allergy status to other antibiotic agents; Z79.82 Long term (current) use of aspirin; Z79.84 Long term (current) use of oral hypoglycemic drugs; Z79.899 Other long term (current) drug therapy; E11.319 Type 2 diabetes mellitus with unspecified diabetic retinopathy without macular edema; Z82.49 Family history of ischemic heart disease and other diseases of the circulatory system; Z82.61 Family history of arthritis; Z83.518 Family history of other specified eye disorder; Z83.3 Family history of diabetes mellitus; Z87.891 Personal history of nicotine dependence; Z90.710 Acquired absence of both cervix and uterus; K21.9 Gastro-esophageal reflux disease without esophagitis
CPT/HCPCS: 65920; J2250; J0171; J3010; J2001

== ENCOUNTER → 2020-12-03 | Outpatient (CLI) | payer MEDICARE, BC ==
--- NOTE | 2020-12-04 14:48 | MM ---
Reason for exam: screening (asymptomatic). Last mammogram was performed 1 year and 6 months ago. History: Patient is postmenopausal. Benign excisional biopsy of both breasts. Took hormonal contraceptives for 20 years. Took estrogen for 2 months. Physical Findings: A clinical breast exam by your physician is recommended on an annual basis and results should be correlated with mammographic findings. MG 3D Screening Mammo W/Cad Bilateral CC and MLO view(s) were taken. Prior study comparison: May 29, 2019, mammogram, performed at [facility]. November 01, 2017, mammogram, performed at [facility]. The breast tissue is heterogeneously dense. This may lower the sensitivity of mammography. Asymmetric breast tissue right central breast unchanged from 2019. There is no discrete abnormality. ASSESSMENT: Benign, BI-RAD 2 RECOMMENDATION: Routine screening mammogram of both breasts in 1 year.
== END ==
LOC: RADMAMWWP 08:19
PROVIDERS: ATTEND Family Medicine
DX: Z12.31 Encounter for screening mammogram for malignant neoplasm of breast (principal); Z78.0 Asymptomatic menopausal state
CPT/HCPCS: 77063; 77067

== ENCOUNTER 2022-06-12 09:35 | Emergency (ER) | payer MEDICARE, BC ==
--- NOTE | 2022-06-12 09:49 | ED ---
General Adult HPI - General Chief complaint: Extremity Injury, Upper Stated complaint: rt hand injury Time Seen by Provider: 06/12/22 09:43 Source: patient, RN notes reviewed, old records reviewed Mode of arrival: ambulatory Limitations: no limitations - History of Present Illness Initial comments: 66-year-old female presenting for evaluation of right hand pain. Patient states she bumped her hand yesterday right on the base of the thumb. She has had an issue with this joint for some time and was scheduled for possible joint replacement however she is dealing with several other health issues and this is on hold currently. No fever. No other complaints. - Related Data Home Medications Medication Instructions Recorded Confirmed Alendronate Sodium [Fosamax] 70 mg PO MO 10/19/18 11/04/20 Aspirin 325 mg PO HS 10/19/18 11/04/20 Baclofen [Lioresal] 10 mg PO TID 10/19/18 11/04/20 DULoxetine HCL [Cymbalta] 30 mg PO QAM 10/19/18 11/02/20 Enalapril [Vasotec] 5 mg PO HS 10/19/18 11/04/20 Fenofibrate 160 mg PO HS 10/19/18 11/04/20 Labetalol [Trandate] 100 mg PO BID 10/19/18 11/02/20 Omeprazole 20 mg PO HS 10/19/18 11/04/20 Pregabalin [Lyrica] 150 mg PO TID 10/19/18 11/02/20 Sertraline [Zoloft] 100 mg PO HS 10/19/18 11/04/20 Simvastatin 40 mg PO 10/19/18 11/04/20 hydroCHLOROthiazide 25 mg PO QAM 10/19/18 11/04/20 metFORMIN HCL [Glucophage] 1,000 mg PO BID 10/19/18 11/04/20 Previous Rx's Medication Instructions Recorded HYDROcodone/APAP 5-325MG [[place] 1 tab PO Q6HR PRN #12 tab 06/12/22 5-325] methylPREDNISolone Dose Pack 4 mg PO DIRECTED #21 packet 06/12/22 [Medrol Dose Pack] Allergies Allergy/AdvReac Type Severity Reaction Status Date / Time Tetracyclines AdvReac Rash/Hives Verified 06/12/22 09:39 Review of Systems ROS Statement: Those systems with pertinent positive or pertinent negative responses have been documented in the HPI. ROS Other: All systems not noted in ROS Statement are negative. Past Medical History Past Medical History: Diabetes Mellitus, Fibromyalgia, GERD/Reflux, Hyperlipidemia, Hypertension, Osteoarthritis (OA), Rheumatoid Arthritis (RA) Additional Past Medical History / Comment(s): OSTEOPOROSIS. DEGNERATIVE JOINT DISEASE IN NECK/CHRONIC PAIN. NEUROPATHY IN HANDS & FEET. HISTORY OF FALLS WITH NEUROPATHY, ANEMIA. RAYNAUD'S. INCONTINENT(USES PAD/PANTIES).PSORIATIC ARTHRITIS, USES CANE. History of Any Multi-Drug Resistant Organisms: None Reported Past Surgical History: Adenoidectomy, Breast Surgery, Hysterectomy, Joint Replacement, Tonsillectomy Additional Past Surgical History / Comment(s): LEFT CARPAL TUNNEL/MASS. JU BREAST BIOPSY/NEG. TOTAL RIGHT KNEE, COLONOSCOPY ,EGD, ju. CATARACTS removed Past Anesthesia/Blood Transfusion Reactions: No Reported Reaction Past Psychological History: Anxiety, Depression Smoking Status: Former smoker Past Alcohol Use History: None Reported Past Drug Use History: Marijuana - Past Family History Mother Family Medical History: No Reported History General Exam Limitations: no limitations General appearance: alert, in no apparent distress Head exam: Present: atraumatic, normocephalic Eye exam: Present: normal appearance, PERRL ENT exam: Present: normal exam Neck exam: Present: normal inspection. Absent: tenderness, meningismus Respiratory exam: Present: normal lung sounds bilaterally. Absent: respiratory distress, wheezes Cardiovascular Exam: Present: regular rate, normal rhythm GI/Abdominal exam: Present: soft. Absent: distended, tenderness Extremities exam: Present: other (Pain and swelling at the base of the thumb right hand, decreased range of motion secondary to pain) Neurological exam: Present: alert, oriented X3, CN II-XII intact. Absent: motor sensory deficit Psychiatric exam: Present: normal affect, normal mood Skin exam: Present: warm, dry Course Vital Signs 06/12/22 06/12/22 09:36 09:50 Temperature 98.1 F Pulse Rate 72 78 Respiratory 18 16 Rate Blood Pressure 115/72 O2 Sat by Pulse 99 Oximetry Medical Decision Making - Medical Decision Making 66 yo female presenting for evaluation of right thumb pain. Patient had bumped this thumb on the wall. She does have previous history of osteoarthritis and it followed with hand surgery previously. There is pain at the base of the right thumb, x-ray showing severe arthritis at the basilar joint, no fracture. She should follow with orthopedic hand surgeon, given [facility]. She'll be started on a short course of steroids. Disposition Clinical Impression: Osteoarthritis of basilar joint of thumb Disposition: HOME SELF-CARE Condition: Fair Instructions (If sedation given, give patient instructions): Osteoarthritis (DC) Prescriptions: methylPREDNISolone Dose Pack [Medrol Dose Pack] 4 mg PO DIRECTED #21 packet HYDROcodone/APAP 5-325MG [[place] 5-325] 1 tab PO Q6HR PRN #12 tab PRN Reason: Pain Is patient prescribed a controlled substance at d/c from ED?: No Referrals: Jonn Day DO [Primary Care Provider] - 1-2 days Jame Ball DO [Doctor of Osteopathic Medicine] - 1-2 days Marine Youssef DO [Doctor of Osteopathic Medicine] - 1-2 days Time of Disposition: 10:46
[2022-06-12] MEDS ORDERED: HYDROmorphone 0.5 MG/0.5 ML SYRINGE IM STA (10:27)
--- NOTE | 2022-06-12 10:35 | XR ---
EXAMINATION TYPE: XR hand complete RT DATE OF EXAM: 06/12/2022 COMPARISON: NONE HISTORY: 66-year-old female pain and redness near first digit after striking injury. TECHNIQUE: 3 views FINDINGS: Scattered osteoarthritic change, mild within the DIP joints, more moderate at the second MCP joint wi th joint space narrowing, and severe at the first CMC joint with joint subluxation, subchondral scler osis, prominent marginal spurring. Mild degenerative change. CV joint. No acute fracture, subluxation , or dislocation is seen. Osteopenia. IMPRESSION: Scattered osteoarthritic change severe at the base of the thumb and then moderate at the second MCP j oint followed by mild degenerative change throughout the DIP joints. Osteopenia. No acute osseous abn ormality seen.
[2022-06-12 10:58] VITALS: BP 117/75; PULSE 72; RESP 18; TEMP 98.2
== END 2022-06-12 10:58 | disposition home or self-care (01) ==
LOC: EC 09:35
DX: M18.9 Osteoarthritis of first carpometacarpal joint, unspecified (principal); E11.9 Type 2 diabetes mellitus without complications; I10 Essential (primary) hypertension; E78.5 Hyperlipidemia, unspecified; K21.9 Gastro-esophageal reflux disease without esophagitis; Z79.83 Long term (current) use of bisphosphonates; Z87.891 Personal history of nicotine dependence; Z88.8 Allergy status to other drugs, medicaments and biological substances
CPT/HCPCS: 99283; 96372; 73130; J1170

== ENCOUNTER → 2022-12-08 | Outpatient (CLI) | payer MEDICARE, BC ==
[2022-12-08 13:29] LABS: Creatinine,Urine Random 22.4 mg/dL; Protein/Creatinine Ratio,Urine 0.402
[2022-12-08 14:58] LABS: Basophils # (A) 0.12 X 10*3/uL (0.00-0.10); Basophils % (A) 1.8 %; Eosinophils # (A) 0.15 X 10*3/uL (0.04-0.35); Eosinophils % (A) 2.3 %; HCT 37.8 % (37.2-46.3); HGB 11.8 g/dL (12.0-15.0); Immature Grans, Automated 0.5 %; Lymphocytes # (A) 1.76 X 10*3/uL (0.90-5.00); Lymphocytes % (A) 27.1 %; MCH 26.6 pg (27.0-32.0); MCHC 31.2 g/dL (32.0-37.0); MCV 85.1 fL (80.0-97.0); Mean Platelet Volume 11.2 fL (9.5-12.2); Monocytes # (A) 0.72 X 10*3/uL (0.20-1.00); Monocytes % (A) 11.1 %; NRBC Per 100 WBC 0 /100 WBCS (0.0-0.0); Neutrophils # (A) 3.71 X 10*3/uL (1.80-7.70); Neutrophils % (A) 57.2 %; Platelet Count 410 X 10*3/uL (140-440); RBC 4.44 X 10*6/uL (4.10-5.20); RDW 14.8 % (11.5-14.5); WBC 6.49 X 10*3/uL (4.50-10.00)
[2022-12-08 15:51] LABS: % Iron Saturation 13.79 (12.00-45.00); African American GFR (CKD) 76.7 (60.0-200.0); BUN/Creat Ratio 26.67 Ratio (12.00-20.00); Calcium 9.6 mg/dL (8.7-10.3); Magnesium 1.2 mg/dL (1.5-2.4); Non-African American GFR(CKD) 66.2 (60.0-200.0); Phosphorus 4.4 mg/dL (2.4-5.1); Potassium 4.9 mmol/L (3.5-5.5); Uric Acid 5.6 mg/dL (2.9-7.7)
[2022-12-08 16:49] LABS: Albumin 4.8 g/dL (3.8-4.9)
[2022-12-08 18:50] LABS: Appearance,Urine Clear (Clear); Bilirubin,Urine Negative (Negative); Blood,Urine Negative (Negative); Color,Urine Yellow (Yellow); Ketones,Urine Negative (Negative); Nitrite,Urine Negative (Negative); PH, Urine 6.5 (5.0-8.0); Specific Gravity,Urine 1.008 (1.001-1.030); Urobilinogen,Urine 0.2 (0.2,1.0)
[2022-12-08 18:57] LABS: Bacteria,Urine 3+ /HPF (None Seen)
[2022-12-08 20:22] LABS: Microalbumin Creatinine Ratio <30 mg/g Creat (0-30); Urine Creatinine 24.6 mg/dL (28.0-217.0)
== END | disposition home or self-care (01) ==
LOC: LABWHC1 10:16
PROVIDERS: ATTEND Nurse Practitioner Adult Health
DX: E55.9 Vitamin D deficiency, unspecified (principal); N25.81 Secondary hyperparathyroidism of renal origin; M10.9 Gout, unspecified; N39.0 Urinary tract infection, site not specified; N18.2 Chronic kidney disease, stage 2 (mild); D63.1 Anemia in chronic kidney disease
CPT/HCPCS: 36415; 80048; 81001; 82040; 82043; 82306; 82570; 82728; 83540; 83550; 83735; 83970; 84100; 84156; 84550; 85025

== ENCOUNTER 2024-09-14 06:27 | Emergency (ER) | payer MEDICARE, BC ==
--- NOTE | 2024-09-14 06:55 | ED ---
Lower Extremity Injury HPI - General Chief Complaint: Extremity Injury, Lower Stated Complaint: Left knee injury Time Seen by Provider: 09/14/24 06:52 Source: patient, RN notes reviewed Mode of arrival: wheelchair - History of Present Illness Initial Comments: 69-year-old female presenting to the ER with left knee pain. States she has had chronic pain of the left knee due to osteoarthritis for several years however pain has been worsening over the past 2 days. Denies trauma or injury. Has not taken anything for pain in the last day. She has an orthopedic appointment next month to discuss total knee replacement. Denies fever, redness, swelling. - Related Data Home Medications Medication Instructions Recorded Confirmed Alendronate Sodium [Fosamax] 70 mg PO MO 10/19/18 11/04/20 Aspirin 325 mg PO HS 10/19/18 11/04/20 Baclofen [Lioresal] 10 mg PO TID 10/19/18 11/04/20 DULoxetine HCL [Cymbalta] 30 mg PO QAM 10/19/18 11/02/20 Enalapril [Vasotec] 5 mg PO HS 10/19/18 11/04/20 Fenofibrate 160 mg PO HS 10/19/18 11/04/20 Labetalol [Trandate] 100 mg PO BID 10/19/18 11/02/20 Omeprazole 20 mg PO HS 10/19/18 11/04/20 Pregabalin [Lyrica] 150 mg PO TID 10/19/18 11/02/20 Sertraline [Zoloft] 100 mg PO HS 10/19/18 11/04/20 Simvastatin 40 mg PO 10/19/18 11/04/20 hydroCHLOROthiazide 25 mg PO QAM 10/19/18 11/04/20 metFORMIN HCL [Glucophage] 1,000 mg PO BID 10/19/18 11/04/20 Previous Rx's Medication Instructions Recorded HYDROcodone/APAP 5-325MG [[place] 1 tab PO Q6HR PRN #12 tab 06/12/22 5-325] methylPREDNISolone Dose Pack 4 mg PO DIRECTED #21 packet 06/12/22 [Medrol Dose Pack] Cyclobenzaprine [Flexeril] 10 mg PO TID PRN #15 tab 09/14/24 Lidocaine 5% Patch [Lidoderm 5% 1 patch TOPICAL DAILY 7 Days #7 09/14/24 Patch] patch Naproxen [Naprosyn] 500 mg PO Q12H PRN #30 tablet 09/14/24 Allergies Allergy/AdvReac Type Severity Reaction Status Date / Time Tetracyclines AdvReac Rash/Hives Verified 09/14/24 06:34 Review of Systems ROS Statement: Those systems with pertinent positive or pertinent negative responses have been documented in the HPI. ROS Other: All systems not noted in ROS Statement are negative. Past Medical History Past Medical History: Diabetes Mellitus, Fibromyalgia, GERD/Reflux, Hyperlipidemia, Hypertension, Osteoarthritis (OA), Rheumatoid Arthritis (RA) Additional Past Medical History / Comment(s): OSTEOPOROSIS. DEGNERATIVE JOINT DISEASE IN NECK/CHRONIC PAIN. NEUROPATHY IN HANDS & FEET. HISTORY OF FALLS WITH NEUROPATHY, ANEMIA. RAYNAUD'S. INCONTINENT(USES PAD/PANTIES).PSORIATIC ARTHRITIS, USES CANE. History of Any Multi-Drug Resistant Organisms: None Reported Past Surgical History: Adenoidectomy, Breast Surgery, Hysterectomy, Joint Replacement, Tonsillectomy Additional Past Surgical History / Comment(s): LEFT CARPAL TUNNEL/MASS. JU BREAST BIOPSY/NEG. TOTAL RIGHT KNEE, COLONOSCOPY ,EGD, ju. CATARACTS removed, two cervical fusions 2021 and 04/2024. Past Anesthesia/Blood Transfusion Reactions: No Reported Reaction Past Psychological History: Anxiety, Depression Smoking Status: Former smoker Past Alcohol Use History: None Reported Past Drug Use History: Marijuana - Past Family History Mother Family Medical History: No Reported History General Exam General appearance: alert, in no apparent distress Head exam: Present: atraumatic, normocephalic, normal inspection Left Upper Leg exam: Present: normal inspection, full ROM. Absent: tenderness, swelling Knee exam: Present: normal inspection, full ROM. Absent: tenderness, swelling, abrasion, laceration, deformity, erythema, effusion, pain w/ pronation/supination, posterior draw sign, pain/laxity with valgus, pain/laxity with varus Lower Leg exam: Present: normal inspection, full ROM. Absent: tenderness, swelling Ankle exam: Present: normal inspection, full ROM. Absent: tenderness, swelling Foot/Toe exam: Present: normal inspection, full ROM. Absent: tenderness, swelling Neurovascular tendon exam: Present: no vascular compromise. Absent: pulse deficit, abnormal cap refill, sensory deficit Neurological exam: Present: alert, oriented X3 Psychiatric exam: Present: normal affect, normal mood Skin exam: Present: warm, dry, intact, normal color. Absent: rash Course Vital Signs 09/14/24 06:29 Temperature 98.2 F Pulse Rate 73 Respiratory 16 Rate Blood Pressure 103/60 O2 Sat by Pulse 97 Oximetry Medical Decision Making - Medical Decision Making Was pt. sent in by a medical professional or institution (ISAIAS Ernst, SENIOR ARCHITECTURAL DESIGNER, urgent care, hospital, or long term...) When possible be specific @ -Was pt. sent in by a medical professional or institution (ISAIAS Ernst, SENIOR ARCHITECTURAL DESIGNER, urgent care, hospital, or long term...) When possible be specific @ -No Did you speak to anyone other than the patient for history (EMS, parent, family, police, friend...)? What history was obtained from this source @ -No Did you review nursing and triage notes (agree or disagree)? Why? @ -I reviewed and agree with nursing and triage notes Were old charts reviewed (outside hosp., previous admission, EMS record, old EKG, old radiological studies, urgent care reports/EKG's, long term records)? Report findings @ -No old charts were reviewed Differential Diagnosis (chest pain, altered mental status, abdominal pain women, abdominal pain men, vaginal bleeding, weakness, fever, dyspnea, syncope, headache, dizziness, GI bleed, back pain, seizure, CVA, palpatations, mental health, musculoskeletal)? @ -Differential Musculoskeletal Muscular strain, contusion, ligament sprain, fracture, arthritis, septic arthritis, bursitis, cellulitis, muscle spasm, nerve compression, DVT, arterial occlusion, herpes zoster, electrolyte abnormality, tumor.... This is not meant to be in all inclusive list EKG interpreted by me (3pts min.). @ -None X-rays interpreted by me (1pt min.). @ -X-ray left knee reveals no acute osseous pathology, mild tricompartmental osteoarthritic changes with small joint effusion CT interpreted by me (1pt min.). @ -None done U/S interpreted by me (1pt. min.). @ -None done What testing was considered but not performed or refused? (CT, X-rays, U/S, labs)? Why? @ -None What meds were considered but not given or refused? Why? @ -None Did you discuss the management of the patient with other professionals (professionals i.e. DrTulio, PA, SENIOR ARCHITECTURAL DESIGNER, lab, RT, psych nurse, social and political studies professor, supervisor orchard, teacher, environmental protection officer, director of casework)? Give summary @ -No Was smoking cessation discussed for >3mins.? @ -No Was critical care preformed (if so, how long)? @ -No Were there social determinants of health that impacted care today? How? (Homelessness, low income, unemployed, alcoholism, drug addiction, transportation, low edu. Level, literacy, decrease access to med. care, senior care, rehab)? @ -No Was there de-escalation of care discussed even if they declined (Discuss DNR or withdrawal of care, Hospice)? DNR status @ -No What co-morbidities impacted this encounter? (DM, HTN, Smoking, COPD, CAD, Cancer, CVA, ARF, Chemo, Hep., AIDS, mental health diagnosis, sleep apnea, morbid obesity)? @ -None Was patient admitted / discharged? Hospital course, mention meds given and route, prescriptions, significant lab abnormalities, going to OR and other pertinent info. @ -Discharge. This is a 69-year-old female with acute on chronic left knee pain secondary to osteoarthritis. No trauma or injury. No sign of bacterial infection. Neurovascularly intact. Patient is provided with analgesics. X-ray reveals no acute osseous pathology. Upon reevaluation, patient reports symptom improvement. Appropriate return precautions and follow-up care discussed. Case was discussed with my ED attending Dr. Rothman. Undiagnosed new problem with uncertain prognosis? @ -No Drug Therapy requiring intensive monitoring for toxicity (Heparin, Nitro, Insulin, Cardizem)? @ -No Were any procedures done? @ -No Diagnosis/symptom? @ -Left knee osteoarthritis Acute, or Chronic, or Acute on Chronic? @ -Acute Uncomplicated (without systemic symptoms) or Complicated (systemic symptoms)? @ -Uncomplicated Side effects of treatment? @ -No Exacerbation, Progression, or Severe Exacerbation? @ -No Poses a threat to life or bodily function? How? (Chest pain, [place], [place], pneumonia, PE, COPD, DKA, ARF, appy, cholecystitis, CVA, Diverticulitis, Homicidal, Suicidal, threat to staff... and all critical care pts) @ -No Did you speak to anyone other than the patient for history (EMS, parent, family, police, friend...)? What history was obtained from this source @ -No Disposition Clinical Impression: Osteoarthritis of left knee Disposition: HOME SELF-CARE Condition: Stable Instructions (If sedation given, give patient instructions): Osteoarthritis (ED) Additional Instructions: You may take naproxen, Flexeril, and lidocaine patches as needed for pain. Applying heat to affected area may also relieve pain. Follow-up with orthopedics as discussed. Please return to the Emergency Department if symptoms worsen or any other concerns. Prescriptions: Cyclobenzaprine [Flexeril] 10 mg PO TID PRN #15 tab PRN Reason: Muscle Spasm Lidocaine 5% Patch [Lidoderm 5% Patch] 1 patch TOPICAL DAILY 7 Days #7 patch Naproxen [Naprosyn] 500 mg PO Q12H PRN #30 tablet PRN Reason: Pain Is patient prescribed a controlled substance at d/c from ED?: No Referrals: None,Stated [Primary Care Provider] - 1-2 days Onel Craft DO [Doctor of Osteopathic Medicine] - 1-2 days Time of Disposition: 08:01
[2024-09-14] MEDS: KETOROLAC 15 MG/ML 1 ML VIAL IM STA (07:03)
[2024-09-14] MEDS: ORPHENADRINE 30 MG/ML 2 ML VIAL IM STA (07:04)
[2024-09-14] MEDS: LIDOCAINE 4% PATCH TOPICAL ONE (07:04)
--- NOTE | 2024-09-14 07:41 | XR ---
EXAMINATION TYPE: XR knee complete LT DATE OF EXAM: 09/14/2024 7:19 AM COMPARISON: None CLINICAL INDICATION: Female, 69 years old with history of left knee pain, pain TECHNIQUE: XR knee complete LT 3 views submitted. FINDINGS: No evidence of any acute osseous pathology, soft tissue swelling. Small joint effusion pr esent Tricompartmental osteophyte formation involving the femoral condyles, tibial plateau and patell a. Mild joint space narrowing. Atherosclerosis of the arterial vasculature. IMPRESSION: 1. No acute osseous pathology. 2. Mild tricompartmental osteoarthritic changes with small joint effusion. [facility], , 09/14/2024 7:39 AM
[2024-09-14] MEDS: MORPHINE SULFATE 4 MG/ML SYRINGE IM STA (08:01)
[2024-09-14 08:36] VITALS: BP 136/78; PULSE 76; RESP 18; TEMP 98.1
== END 2024-09-14 08:36 | disposition home or self-care (01) ==
LOC: EC 06:27
DX: M17.12 Unilateral primary osteoarthritis, left knee (principal); Z88.1 Allergy status to other antibiotic agents; Z87.891 Personal history of nicotine dependence
CPT/HCPCS: 73562; 99284; 96372; J2270; J2360; J1885

== ENCOUNTER 2024-10-15 07:29 | Day surgery (SDC) | payer MEDICARE, BC ==
[~2024-10-15 07:29] MED LIST changes: -ATROPINE OPHTH SOLN 1% 5ML BTL BOTH EYES PRN; -CYCLOPENTOLATE 1% OPHTH SOLN 2 ML BTL OP PRN; +GABAPENTIN 300 MG CAP PO PRN; +LIDOCAINE 1% (10MG/ML) FOR IV START INTRADERMA PRN; -MOXIFLOXACIN HCL 0.5% DROPS 3 ML BTL OP PRN; -PHENYLEPHRINE 2.5% OPHTH DRP 2ML OP PRN; -TETRACAINE 0.5% OPHTH (PF) DROPS 4 ML BTL OP PRN; -TIMOLOL 0.5% OPHTH DROPS 5 ML BTL OP PRN; +TRANEXAMIC 1,000 MG/100ML-NACL 1,000 MG in SALINE 1 100ML.BAG IVPB PRN
[2024-10-15 08:33] LABS: Glucose,Whole Blood 105 mg/dL (70-110)
[2024-10-15] MEDS: ONDANSETRON 4 MG/2 ML VIAL IVP ONE (08:37)
[2024-10-15] MEDS: MELOXICAM 7.5 MG TAB PO PRN (08:37)
[2024-10-15] MEDS: ACETAMINOPHEN TAB 500 MG TAB PO PRN (08:37)
[2024-10-15] MEDS: MIDAZOLAM 2 MG/2 ML VIAL IV ONE (08:38)
[2024-10-15] MEDS: DEXAMETHASONE SOD PHOSPHATE 4 MG/ML 1 ML VIAL IV ONE (08:38)
[2024-10-15] MEDS: fentaNYL (PF) 50 MCG/ML 2 ML AMP IVP PRN (08:39)
[2024-10-15] MEDS ORDERED: ONDANSETRON 4 MG/2 ML VIAL IVP PRN (08:50)
[2024-10-15] MEDS ORDERED: NALOXONE 0.4 MG/ML 1 ML VIAL IV PRN (08:50)
[2024-10-15] MEDS ORDERED: NA PHOS,M-B/NA PHOS,DI-BA 133 ML ENEMA RECTAL PRN (08:50)
[2024-10-15] MEDS ORDERED: HYDROmorphone 0.5 MG/0.5 ML SYRINGE IVP PRN ×2 (08:50)
[2024-10-15] MEDS ORDERED: bisacodyL 10 MG SUPP RECTAL PRN (08:50)
[2024-10-15] MEDS ORDERED: MAGNESIUM HYDROXIDE 2,400 MG/30 ML CUP PO PRN (08:50)
[2024-10-15] MEDS ORDERED: HYDROcodone/APAP 7.5-325MG 1 EACH TAB PO PRN (08:52)
[2024-10-15] MEDS ORDERED: PROPOFOL 10 MG/ML 20 ML VIAL IV ONE (09:03)
[2024-10-15] MEDS ORDERED: MIDAZOLAM 2 MG/2 ML VIAL ONE (09:03)
[2024-10-15] MEDS ORDERED: TRANEXAMIC 1,000 MG/100ML-NACL PREMIX BAG ONE (09:03)
[2024-10-15] MEDS ORDERED: fentaNYL (PF) 50 MCG/ML 2 ML AMP ONE (09:03)
[2024-10-15] MEDS ORDERED: ROPIVACAINE 5 MG/ML 30 ML VIAL ONE (09:03)
[2024-10-15] MEDS ORDERED: DEXAMETHASONE SOD PHOSPHATE 4 MG/ML 1 ML VIAL ONE (09:03)
--- NOTE | 2024-10-15 09:03 | P.ANPRN ---
Procedure Note - Anesthesia - Nerve Block Performed Left Adductor Canal Infusion Time Out Performed: Yes Date of Procedure: 10/15/24 Procedure Start Time: 08:38 Procedure Stop Time: 08:47 Location of Patient: PreOp Indication: Acute Post-Operative Pain, Requested by Surgeon Sedation Type: Sedate with meaningful contact maintained Preparation: Sterile Prep Position: Supine Catheter: Indwelling Needle Types: Pajunk Needle Gauge: 18 Ultrasound used to visualize needle placement: Yes Ultrasound used to observe medication spread: Yes Injectate: 0.5% Ropivacaine (see comment for volume) (20 ml + 10 ml NS) Blood Aspirated: No Pain Paresthesia on Injection Noted: No Resistance on Injection: Normal Image Stored and Saved: Yes Events: Uneventful and Well Tolerated
--- NOTE | 2024-10-15 09:04 | P.ANPRN ---
Procedure Note - Anesthesia - Nerve Block Performed Left iPack Single Time Out Performed: Yes Date of Procedure: 10/15/24 Procedure Start Time: 08:48 Procedure Stop Time: 08:55 Location of Patient: PreOp Indication: Acute Post-Operative Pain, Requested by Surgeon Sedation Type: Sedate with meaningful contact maintained Preparation: Sterile Prep Position: Right Lateral Needle Types: Pajunk Needle Gauge: 21 Ultrasound used to visualize needle placement: Yes Ultrasound used to observe medication spread: Yes Injectate: 0.5% Ropivacaine (see comment for volume) (20 ML + 10 ML NS + 4 mg Dexamethasone) Blood Aspirated: No Pain Paresthesia on Injection Noted: No Resistance on Injection: Normal Image Stored and Saved: Yes Events: Uneventful and Well Tolerated
[2024-10-15] MEDS: IV FLUID CONTINUATION 1,000 ML IV ONE ×2 (09:07→10:43)
[2024-10-15] MEDS: ceFAZolin 1,000 MG in SODIUM CHLORIDE 0.9% 1,000 ML IRRIGATION ONE (09:08)
--- NOTE | 2024-10-15 10:16 | P.OP ---
Date of Procedure: 10/15/24 Preoperative Diagnosis: Severe osteoarthritis left knee Postoperative Diagnosis: Severe osteoarthritis left knee Procedure(s) Performed: Left total knee arthroplasty Implants: [employer] Journey II CR Oxinium cruciate retaining femoral component size 5, left [employer] Journey nonporous tibial baseplate size 4, left [employer] Journey II, XLPE Deep Dished articular insert, size 11 mm, Size 3-4, left [employer] Hannah II resurfacing patellar component, oval, 32 mm All components were cemented using Palacos R bone cement The articulation is Oxinium on polyethylene Anesthesia: spinal Surgeon: Wojciech Segovia [employer] #1: Kaye Green Estimated Blood Loss (ml): 50 Pathology: none sent Condition: stable Disposition: PACU Indications for Procedure: The patient's knee is end-stage, and conservative management has failed. The operation of knee replacement has been discussed at length in the office, as well as potential risks and complications. These are inclusive of, but not limited to: Infection, bleeding, scarring, discomfort, stiffness, blood vessel and nerve damage, need for further surgery, failure to relieve symptoms, persistence, recurrence, or worsening of problems, loosening, dislocation, wear, blood clot, pulmonary embolism, , gait dysfunction, stiffness, and other risks as discussed in the office. Patient elects to proceed and the consent form has been signed. Operative Findings: The operative findings are consistent with severe osteoarthritis of the left knee Description of Procedure: The patient was seen in the preoperative area, the consent was reviewed and the operative site was marked with a skin marker. The patient verified the procedure and the operative site. An adductor canal pain catheter and an iPACK block were placed by anesthesia in the preoperative area. The patient was then brought to the operating room and positioned on the operating room table in the supine position. Preoperative antibiotics and a gram of tranexamic acid were given intravenously. A spinal anesthetic was administered by the anesthesia department. Care was taken to make sure that all pressure points were adequately padded. A tourniquet was placed on the upper thigh and the lower extremity was prepped with ChloraPrep and draped in usual sterile fashion. A universal time-out was then performed which confirmed the patient's name, surgical site, ALLERGIES, and consent. The lower extremity was then exsanguinated and tourniquet was inflated to 250 mmHg. A standard anterior midline approach to the knee was performed. The skin and subcutaneous tissue were sharply dissected down to the patellar tendon. A medial parapatellar arthrotomy was then performed. The knee was then extended, the patellar was everted, and the knee was flexed. The infra-patellar fat pad was removed in order to enhance exposure. The anterior horns of both menisci were excised, and a release was performed to the posterior medial aspect of the knee. On gross visual inspection, there was complete loss of articular cartilage in the medial and patellofemoral joint spaces. There was also significant cartilage damage in the lateral compartment. There were multiple periarticular osteophytes globally about the knee which were then removed with a Ronguer. The femoral canal was then opened with the 9.5 mm intramedullary drill. The 8 mm intramedullary cesia was then inserted into the femoral canal with the distal femoral cutting guide set for 5 of valgus. The distal femoral cutting block was then pinned in place. The intramedullary cesia was then removed, and the distal femur was then cut. The cutting block was then removed and the cut was checked for symmetry. The resected bone was then measured to confirm the appropriate distal femoral resection. Next, the sizing guide was then placed and set for 3 external rotation based off of the epicondylar axis and Hammond's line. Pins were then placed and the drill holes, and the femur was sized with the sizing stylus. The pins were then removed, and the sizing guide was then removed. The spikes of the appropriate size femoral block was then placed into the predrilled holes, and malleted into place. Two 45 mm pins were then placed into the fixation holes on the cutting block. An beba wing was then used to ensure there would be no notching with the anterior cut. The anterior condyles were cut without notching. The anterior chord cut was then performed, followed by the posterior cut, posterior chamfer cut, and the anterior chamfer cut. The collateral ligaments were protected during the entire process. The cutting block was then removed. Any remaining bone and osteophytes were removed from the femur with a Ronguer. Attention was then directed to the tibia. The remaining ACL was removed with a Ronguer, and the tibia was then gently subluxed forward with a large bent knee retractor. Any remaining menisci were excised. The posterior lateral corner was cauterized in order to coagulate the lateral geniculate artery. The extra medullary tibial cutting guide was then placed, set for the appropriate rotation, slope, and depth of resection. The proximal tibia cutting guide was then pinned in place. Proximal tibia was then cut and sized. A curved osteotome was then used to remove any posterior osteophytes from the distal femur. The femoral trial was placed. A narrow saw blade was then used to remove the anterior intracondylar femoral bone. The CR notch trial was then placed. The tibial trial was placed with the appropriate-sized insert. The knee was able to fully extend and flex to 130 and was stable throughout all range of motion. The knee was then extended and the patella was everted. Patella was then measured, and then using an osteotomy guide, the patella was cut at the appropriate level. The patellar component was sized. The patellar drill guide was placed and the patella was drilled. The patella trial was then placed. The knee was then taken through range of motion with the patella trial and the patella tracked normally using the no thumbs technique. The patella trial was then removed. The knee was then flexed and lug holes were drilled through the femoral trial and the femoral trial was then removed. The tibial was then re- exposed, and the tibial broach guide was then pinned in place after it was set for the appropriate rotation to allow for the most coverage without overhang. The tibia was then reamed and broached. The femoral canal was plugged with autologous bone. The cut surfaces of bone were then irrigated with pulsatile lavage. The knee was also irrigated with Irrisept solution. The components were then opened, the cement was mixed. Cement was placed on the backside of the femoral, tibial, and patellar components. Cement was then applied to the tibial surface and pressurized into the surface using finger pressurization technique. The tibial component was then applied and excess cement was removed after it was impacted securely noted to be flush with the cut surface. In similar fashion, the cement was applied to the cut femoral surface, pressur ized and using finger pressurization the component was impacted in place. Excess cement was removed. The polyethylene spacer was then implanted and locked into position. Patellar component was then applied in a similar technique and the patellar clamp was used to hold patella in place while the cement hardened. The knee was held in full extension while the cement hardened. Once the cement had fully hardened, the knee was reinspected. Any other cement extrusion was removed the final range of motion testing showed range of motion from 0-130 with excellent stability, both medial and laterally and appropriate alignment of the leg. Patella tracked normally. After the cemented hardened, the tourniquet was released and hemostasis was obtained. A second gram of transexamic acid was given intravenously. The knee was again irrigated. The knee was again taken through range of motion and found to be stable throughout all range of motion of 0-130, and the patella tracked normally. The fascia was then closed with 0 Vicryl followed by #2 strata fix suture. The subcutaneous tissue was closed with 3-0 Vicryl and 3-0 monocryl. Exofin glue was used for the skin and placed with the knee in flexion. After the glue had dried, and Optafoam silver impregnated dressing was applied. A lightly compressive dressing was applied using web roll and Kevin wrap. Patient was then transferred to the stretcher and taken to recovery room in stable condition. Sponge and needle counts were correct. The anesthesiologist assistant certified ISAIAS Aj was required due the complexity surgery and the need for a skilled marketing operations assistant. She assisted in positioning, draping, retraction, and closure of the wound.
[2024-10-15] MEDS: LACTATED RINGERS 1,000 ML IV ONE ×2 (10:34)
[2024-10-15] MEDS: ROPIVACAINE 1,100 MG, SODIUM CHLORIDE 0.9% 500 ML 330 ML, EMPTY PAIN BALL 1 EACH MISCELLANE PRN (10:59)
[2024-10-15 11:15] LABS: Glucose,Whole Blood 104 mg/dL (70-110)
--- NOTE | 2024-10-15 11:19 | XR ---
EXAMINATION TYPE: XR knee limited LT DATE OF EXAM: 10/15/2024 11:12 AM COMPARISON: None. CLINICAL INDICATION: Female, 69 years old with history of Evaluation for Postop abnormality and align ment, pain TECHNIQUE: Portable AP and crosstable lateral views of the left knee are obtained immediately postop eratively. FINDINGS: Metallic hardware from total left knee arthroplasty is seen and appears satisfactory in a lignment and position. There is evidence of recent surgery with diffuse subcutaneous gas and soft ti ssue swelling noted. IMPRESSION: METALLIC HARDWARE FROM TOTAL left KNEE ARTHROPLASTY IS SATISFACTORY IN ALIGNMENT. [facility], , 10/15/2024 11:17 AM
[2024-10-15] MEDS: HYDROmorphone 0.5 MG/0.5 ML SYRINGE IVP PRN ×2 (12:29→17:43)
[2024-10-15] MEDS: SODIUM CHLORIDE 0.9% 1,000 ML IV SCH (13:53)
[2024-10-15] MEDS: LACTATED RINGERS 1,000 ML IV SCH (13:53)
[2024-10-15] MEDS: HYDROcodone/APAP 7.5-325MG 1 EACH TAB PO PRN (15:43)
[2024-10-15] MEDS: PREGABALIN 75 MG CAP PO SCH (15:43)
[2024-10-15 16:32] LABS: Glucose,Whole Blood 156 mg/dL (70-110)
[2024-10-15] MEDS ORDERED: DEXTROSE 50% SYRINGE 50 ML IVP PRN ×2 (18:50)
--- NOTE | 2024-10-15 18:59 | P.CONS ---
History of Present Illness - Reason for Consult Consult date: 10/15/24 Medical Management Requesting physician: Wojciech Segovia - History of Present Illness History of Presenting Illness: Patient is a very pleasant 69-year-old female with a past medical history of hypertension, hyperlipidemia, fibromyalgia, rheumatoid arthritis with chronic pain peripheral neuropathy, GERD, and wck-[id number]-tqivgyrga diabetes mellitus. She is currently admitted under orthopedic surgery team and is status post elective left total knee arthroplasty secondary to severe osteoarthritis of left knee. Surgical procedure completed by Dr. Segovia. We were consulted for medical management throughout hospitalization. Patient seen and fully evaluated at bedside in room 459. Patient currently reports moderate postoperative pain. She denies having any numbness or tingling in her left lower extremity and denies having any postoperative nausea or vomiting, headache, lightheadedness, dizziness, chest pain, palpitations, shortness of breath, or experiencing any difficulties with urination. Patient reports she is incontinent at baseline and has been urinating without difficulty since surgical procedure. Review of systems: Pertinent positives and negatives as discussed in HPI, a complete review of systems was performed and all other systems are negative. Physical exam: Vital signs reviewed and stable. General: Nontoxic, no distress and appears stated age. Derm: Skin warm and dry, normal coloration for ethnicity. Head: Atraumatic, normocephalic and symmetric. Eyes: EOM's intact, no lid lag, and anicteric sclera Mouth: no lip lesions, mucus membranes moist Cardiovascular: regular rate and rhythm with normal S1S2, no murmur, positive posterior tibial pulses bilaterally, and cap refill < 2 seconds. Lungs: Respirations even, regular, and unlabored on room air. Lungs CTA bilaterally, no rhonchi, no rales, no wheezing, and no accessory muscle usage. Abdominal: soft, nontender to palpation, no guarding, no appreciable organomegaly Ext: No gross muscle atrophy, no edema, no contractures. Movement and sensation intact. Patient with postoperative dressing/Kevin wrap and ice pack in place left knee. Neuro: Speech clear, face symmetrical and CN II-XII grossly intact with no noted focal neuro deficits Psych: Alert and oriented to person, place, time, and situation. Appropriate and pleasant affect. Assessment and Plan of Care: Status post left total knee arthroplasty -Management per primary admitting orthopedic surgery team including DVT prophylaxis, pain management, wound/dressing management, weightbearing, and PT/OT. -Patient currently on DVT prophylaxis with aspirin 325 mg twice daily. Hypertension -Monitor vital signs and patient to continue daily medication regimen with hydrochlorothiazide 25 mg daily, labetalol 100 mg twice daily, and losartan 50 mg nightly. Hyperlipidemia -Patient to continue atorvastatin 20 mg nightly and fenofibrate 160 mg nightly. Qor-[id number] diabetes mellitus with hyperglycemia -Hold metformin and placed patient on glycemic protocol with NovoLog sliding scale. Fibromyalgia Rheumatoid arthritis Chronic pain -Continue Flexeril 10 mg 3 times daily as needed for muscle spasms and Lyrica 150 mg 3 times daily. Depression with anxiety -Continue Zoloft 100 mg nightly and Cymbalta 30 mg daily. Data reviewed: -Reviewed operative report. -Vital signs reviewed. Blood pressure 137/73, heart rate 92, respiratory rate 18, temp 98.0 F, and SpO2 of 95% on room air. Thank you for allowing us to participate in the care of this pleasant patient. Do not hesitate to contact us with questions. Someone can be reached from the [facility] hospitalist group all hours of the day at [phone] or via beModel. Patient was seen independently by Nurse Practitioner. This document was prepared using [employer] dictation software. Please allow for errors in women's health care nurse practitioner while rare they do occur. Zach Zayas NP rendered care for this patient independently, reviewed the findin gs and plan as documented in the note above and agree with plan. I did not physically speak with or examine the patient on this date. Past Medical History Past Medical History: Diabetes Mellitus, Fibromyalgia, GERD/Reflux, Hyperlipidemia, Hypertension, Osteoarthritis (OA), Renal Disease, Rheumatoid Arthritis (RA) Additional Past Medical History / Comment(s): OSTEOPOROSIS. DEGNERATIVE JOINT DISEASE IN NECK/CHRONIC PAIN. NEUROPATHY IN HANDS & FEET. HISTORY OF FALLS WITH NEUROPATHY- last fall couple weeks ago, hx ANEMIA. RAYNAUD'S. INCONTINENT(USES PAD/PANTIES ).PSORIATIC ARTHRITIS, USES CANE. has azeb Ernst stage 2. left lower leg edema. History of Any Multi-Drug Resistant Organisms: None Reported Past Surgical History: Adenoidectomy, Breast Surgery, Hysterectomy, Joint Replacement, Tonsillectomy Additional Past Surgical History / Comment(s): LEFT CARPAL TUNNEL/MASS. JU BREAST BIOPSY/NEG. TOTAL RIGHT KNEE, COLONOSCOPY ,EGD, ju. CATARACTS removed, two cervical fusions 2021 and 04/2024. Past Anesthesia/Blood Transfusion Reactions: No Reported Reaction Smoking Status: Former smoker - Past Family History Mother Family Medical History: COPD Medications and Allergies Home Medications Medication Instructions Recorded Confirmed Type Aspirin 325 mg PO HS 10/19/18 10/11/24 History DULoxetine HCL [Cymbalta] 30 mg PO QAM 10/19/18 10/11/24 History Fenofibrate 160 mg PO HS 10/19/18 10/11/24 History Labetalol [Trandate] 100 mg PO BID 10/19/18 10/11/24 History Omeprazole 20 mg PO HS 10/19/18 10/11/24 History Pregabalin [Lyrica] 150 mg PO TID 10/19/18 10/11/24 History Sertraline [Zoloft] 100 mg PO HS 10/19/18 10/11/24 History Simvastatin 40 mg PO HS 10/19/18 10/11/24 History hydroCHLOROthiazide 25 mg PO QAM 10/19/18 10/11/24 History metFORMIN HCL [Glucophage] 1,000 mg PO BID 10/19/18 10/11/24 History Cyclobenzaprine [Flexeril] 10 mg PO TID PRN #15 tab 09/14/24 10/11/24 Rx Lidocaine 5% Patch [Lidoderm 5% 1 patch TOPICAL DAILY 7 Days #7 09/14/24 10/11/24 Rx Patch] patch Albuterol Inhaler [Ventolin Hfa 1 - 2 puff INHALATION Q6H PRN 10/11/24 10/11/24 History Inhaler] HYDROcodone/APAP 10-325MG [[place] 1 tab PO Q6H PRN 10/11/24 10/11/24 History 10-325] Losartan Potassium 50 mg PO HS 10/11/24 10/11/24 History Aspirin 325 mg PO BID #60 tab 10/15/24 Rx HYDROcodone/APAP 7.5-325MG [[place] 1 - 2 tab PO Q6H PRN #32 tab 10/15/24 Rx 7.5-325] Sennosides [Senokot] 2 tab PO DAILY PRN #60 tablet 10/15/24 Rx Allergies Allergy/AdvReac Type Severity Reaction Status Date / Time Tetracyclines AdvReac Rash/Hives Verified 10/15/24 07:50 Physical Exam Vitals: Vital Signs Temp Pulse Resp BP Pulse Ox 10/15/24 14:00 87 16 155/85 94 L 10/15/24 13:30 87 16 143/82 94 L 10/15/24 13:00 94 16 157/88 94 L 10/15/24 12:30 92 16 133/70 92 L 10/15/24 11:44 99 16 124/81 93 L 10/15/24 11:29 90 16 150/82 93 L 10/15/24 11:14 89 16 152/86 94 L 10/15/24 10:59 87 16 144/82 93 L 10/15/24 10:43 97 F L 93 17 138/68 96 10/15/24 08:55 94 16 159/87 100 10/15/24 08:08 96.4 F L 99 16 142/89 97 Intake and Output 10/14/24 10/15/24 10/15/24 22:59 06:59 14:59 Intake Total 1051 Output Total 240 Balance 811 Intake: IV 1051 Output: Urine 200 Estimated Blood Loss 40 Other: Weight 74.5 kg
[2024-10-15] MEDS: CYCLOBENZAPRINE 10 MG TAB PO PRN (20:45)
[2024-10-15] MEDS: ATORVASTATIN 20 MG TAB PO SCH (20:45)
[2024-10-15] MEDS: ASPIRIN 325 MG TAB PO SCH (20:46)
[2024-10-15] MEDS: LOSARTAN 50 MG TAB PO SCH (20:46)
[2024-10-15] MEDS: SERTRALINE 100 MG TAB PO SCH (20:46)
[2024-10-15] MEDS: FENOFIBRATE 160 MG TAB PO SCH (20:46)
[2024-10-15] MEDS: SENNOSIDES-DOCUSATE SODIUM 1 EACH TAB PO SCH (20:46)
[2024-10-15] MEDS: LABETALOL 100 MG TAB PO SCH (20:46)
[2024-10-15] MEDS: PANTOPRAZOLE 40 MG TABLET PO SCH (20:46)
[2024-10-15 20:49] LABS: Glucose,Whole Blood 188 mg/dL (70-110)
[2024-10-15] MEDS: INSULIN ASPART (NovoLOG) 100 UNIT/ML VIAL SQ SCH (21:05)
[2024-10-16 06:16] LABS: Glucose,Whole Blood 106 mg/dL (70-110)
--- NOTE | 2024-10-16 06:45 | P.PN ---
Progress Note - Text Progress Note Date: 10/16/24 Postoperative day # 1 status post total knee arthroplasty, and adductor canal catheter placed for postoperative analgesia, currently at ropivacaine 0.2% 8 mL per hour and continuous infusion, visual analogue scale is 3-4/10, patient using oral pain medication for breakthrough pain. Assessment and plan= Acute postoperative pain, adductor canal catheter for pain control, pain is well controlled we'll continue the same management.
[2024-10-16] MEDS: KETOROLAC 15 MG/ML 1 ML VIAL IVP SCH (08:20)
[2024-10-16] MEDS: DULoxetine HCL 30 MG CAPSULE.DR PO SCH (08:21)
[2024-10-16] MEDS: hydroCHLOROthiazide 25 MG TAB PO SCH (08:21)
[2024-10-16 08:56] LABS: Basophils # (A) 0.04 X 10*3/uL (0.00-0.10); Basophils % (A) 0.5 %; Eosinophils # (A) 0.01 X 10*3/uL (0.04-0.35); Eosinophils % (A) 0.1 %; HGB 8.5 g/dL (12.0-15.0); Lymphocytes # (A) 1.28 X 10*3/uL (0.90-5.00); Lymphocytes % (A) 15.4 %; MCH 26.1 pg (27.0-32.0); MCHC 31.5 g/dL (32.0-37.0); MCV 82.8 FL (80.0-97.0); Mean Platelet Volume 10.3 FL (9.5-12.2); Monocytes # (A) 0.96 X 10*3/uL (0.20-1.00); Monocytes % (A) 11.5 %; NRBC Per 100 WBC 0 X 10*3/uL (0.00-0.01); Neutrophils % (A) 72.1 %; Platelet Count 307 X 10*3/uL (140-440); RBC 3.26 X 10*6/uL (4.10-5.20); WBC 8.32 X 10*3/uL (4.50-10.00)
[2024-10-16 09:08] LABS: BUN/Creat Ratio 20.29 Ratio (12.00-20.00); Blood Urea Nitrogen 14.2 mg/dL (9.0-27.0); Calcium 8.1 mg/dL (8.7-10.3); Chloride 99 mmol/L (96-109); Glucose 107 mg/dL (70-110); Potassium 4.2 mmol/L (3.5-5.5); Sodium 134 mmol/L (135-145)
[2024-10-16 09:11] LABS: Magnesium 0.9 mg/dL (1.5-2.4)
--- NOTE | 2024-10-16 10:28 | P.PN ---
Subjective Progress Note Date: 10/16/24 This is a 69-year-old female who is status post left total knee arthroplasty. This is postoperative day #1 and patient is seen and evaluated at bedside today. Patient states that she is in quite a bit of pain today, but was able to work with therapy. Objective - Vital Signs Vital signs: Vital Signs Temp 98.5 F 10/16/24 07:03 Pulse 104 H 10/16/24 08:45 Resp 18 10/16/24 07:03 BP 122/82 10/16/24 07:03 Pulse Ox 96 10/16/24 07:03 FiO2 Intake & Output 10/15/24 10/16/24 10/16/24 18:59 06:59 18:59 Intake Total 1051 720 Output Total 240 Balance 811 720 Weight 74.5 kg Intake: IV 1051 Oral 720 Output: Urine 200 Estimated Blood Loss 40 Other: # Voids 1 5 - Exam Vital signs are stable. Patient is in no acute distress and is alert and oriented 3. Calf is soft and nontender to palpation. Dressing is clean, dry, and intact. Patient has full foot and ankle motion without pain or difficulty. Sensation intact. Neurovascular status and circulatory status are intact. - Labs CBC & Chem 7: 10/16/24 03:55 10/16/24 03:55 Labs: Abnormal Lab Results - Last 24 Hours (Table) 10/15/24 10/15/24 10/16/24 Range/Units 16:30 20:47 03:55 RBC 3.26 L (4.10-5.20) X 10*6/uL Hgb 8.5 L (12.0-15.0) g/dL Hct 27.0 L (37.2-46.3) % MCH 26.1 L (27.0-32.0) pg MCHC 31.5 L (32.0-37.0) g/dL RDW 15.0 H (11.5-14.5) % Eosinophils # 0.01 L (0.04-0.35) X 10*3/uL Sodium (135-145) mmol/L BUN/Creatinine Ratio (12.00-20.00) Ratio POC Glucose (mg/dL) 156 H 188 H (70-110) mg/dL Calcium (8.7-10.3) mg/dL Magnesium (1.5-2.4) mg/dL 10/16/24 Range/Units 03:55 RBC (4.10-5.20) X 10*6/uL Hgb (12.0-15.0) g/dL Hct (37.2-46.3) % MCH (27.0-32.0) pg MCHC (32.0-37.0) g/dL RDW (11.5-14.5) % Eosinophils # (0.04-0.35) X 10*3/uL Sodium 134 L (135-145) mmol/L BUN/Creatinine Ratio 20.29 H (12.00-20.00) Ratio POC Glucose (mg/dL) (70-110) mg/dL Calcium 8.1 L (8.7-10.3) mg/dL Magnesium 0.9 A* (1.5-2.4) mg/dL Assessment and Plan (1) Osteoarthritis of left knee Current Visit: Yes Status: Acute Code(s): M17.12 - UNILATERAL PRIMARY OSTEOARTHRITIS, LEFT KNEE SNOMED Code(s): 914639544406145 (2) Status post total left knee replacement Current Visit: Yes Status: Acute Code(s): Z96.652 - PRESENCE OF LEFT ARTIFICIAL KNEE JOINT SNOMED Code(s): 1300349427549 Plan: #1 Continue with routine postoperative care and pain control, leave dressing in place for 7 days. #2 Anticoagulation with aspirin. #3 Physical therapy today. #4 Appreciate input from internal medicine. #5 Patient's medications were adjusted for better pain control. Patient will stay another night with anticipation for discharge home with home care tomorrow.
--- NOTE | 2024-10-16 11:17 | P.PN ---
Subjective Progress Note Date: 10/16/24 Hospital course: Patient is a very pleasant 69-year-old female with a past medical history of hypertension, hyperlipidemia, fibromyalgia, rheumatoid arthritis with chronic pain peripheral neuropathy, GERD, and woy-prczmnf-[id number] diabetes mellitus. She is currently admitted under orthopedic surgery team and is status post elective left total knee arthroplasty secondary to severe osteoarthritis of left knee. Surgical procedure completed by Dr. Segovia. We were consulted for medical management throughout hospitalization. Physical exam: Patient seen and fully evaluated at bedside this morning. Patient expressing frustration reporting pain is 10 out of 10 in her left knee at this time. She denies any other complaints or needs at this time. RN notified of patient's request for pain medication at this time. Vital signs reviewed and stable. General: Nontoxic, no distress and appears stated age. Derm: Skin warm and dry, normal coloration for ethnicity. Head: Atraumatic, normocephalic and symmetric. Eyes: EOM's intact, no lid lag, and anicteric sclera Mouth: no lip lesions, mucus membranes moist Cardiovascular: regular rate and rhythm with normal S1S2, no murmur, positive posterior tibial pulses bilaterally, and cap refill < 2 seconds. Lungs: Respirations even, regular, and unlabored on room air. Lungs CTA bilaterally, no rhonchi, no rales, no wheezing, and no accessory muscle usage. Abdominal: soft, nontender to palpation, no guarding, no appreciable organomegaly Ext: No gross muscle atrophy, no edema, no contractures. Movement and sensation intact. Patient with postoperative dressing/Kevin wrap and ice pack in place left knee. Neuro: Speech clear, face symmetrical and CN II-XII grossly intact with no noted focal neuro deficits Psych: Alert and oriented to person, place, time, and situation. Appropriate and pleasant affect. Assessment and Plan of Care: Status post left total knee arthroplasty -Management per primary admitting orthopedic surgery team including DVT prophylaxis, pain management, wound/dressing management, weightbearing, and PT/OT. -Patient currently on DVT prophylaxis with aspirin 325 mg twice daily. Severe hypomagnesemia -Magnesium critical value of 0.9. Order placed for magnesium sulfate 4 g IVPB x 1 dose will repeat magnesium level this afternoon and again tomorrow morning. -Telemetry monitoring Acute postoperative blood loss anemia -Hemoglobin 8.5, preoperative hemoglobin 11.8. This is a normal and expected postoperative finding. Will continue to monitor with repeat morning CBC. Hypertension -Monitor vital signs and patient to continue daily medication regimen with hydrochlorothiazide 25 mg daily, labetalol 100 mg twice daily, and losartan 50 mg nightly. Hyperlipidemia -Patient to continue atorvastatin 20 mg nightly and fenofibrate 160 mg nightly. Bba-ovpxalp-afcrcuhxh diabetes mellitus with hyperglycemia -Hold metformin and placed patient on glycemic protocol with NovoLog sliding scale. Fibromyalgia Rheumatoid arthritis Chronic pain -Continue Flexeril 10 mg 3 times daily as needed for muscle spasms and Lyrica 15 0 mg 3 times daily. Depression with anxiety -Continue Zoloft 100 mg nightly and Cymbalta 30 mg daily. Data reviewed: -Morning labs reviewed. CBC showing acute postoperative blood loss anemia with hemoglobin of 8.5. BMP showing mild hyponatremia with sodium of 134 otherwise normal findings. Magnesium level was critically low at 0.9. -Vital signs reviewed. Blood pressure 122/82, heart rate 99, respiratory rate 18, temp 98.5 F, and SpO2 of 96% on room air. Thank you for allowing us to participate in the care of this pleasant patient. Do not hesitate to contact us with questions. Someone can be reached from the [facility] all hours of the day at [phone] or via [employer]. Patient was seen independently by Nurse Practitioner. This document was prepared using [employer] dictation software. Please allow for errors in assistant passenger locomotive engineer while rare they do occur. Zach Zayas NP rendered care for this patient independently, reviewed the findings and plan as documented in the note above and agree with plan. I did not physically speak with or examine the patient on this date. Objective - Vital Signs Vital signs: Vital Signs Temp 98.5 F 10/16/24 07:03 Pulse 99 10/16/24 07:03 Resp 18 10/16/24 07:03 BP 122/82 10/16/24 07:03 Pulse Ox 96 10/16/24 07:03 FiO2 Intake & Output 10/15/24 10/16/24 10/16/24 18:59 06:59 18:59 Intake Total 1051 720 Output Total 240 Balance 811 720 Weight 74.5 kg Intake: IV 1051 Oral 720 Output: Urine 200 Estimated Blood Loss 40 Other: # Voids 1 5 - Labs CBC & Chem 7: 10/16/24 03:55 01/22/25 03:55 Labs: Abnormal Lab Results - Last 24 Hours (Table) 10/15/24 10/15/24 Range/Units 16:30 20:47 POC Glucose (mg/dL) 156 H 188 H (70-110) mg/dL
[2024-10-16 11:26] LABS: Glucose,Whole Blood 121 mg/dL (70-110)
[2024-10-16] MEDS: HYDROcodone/APAP 10-325MG 1 EACH TAB PO PRN (11:28)
[2024-10-16] MEDS: MAGNESIUM SULFATE-D5W PMX 1 GM in DEXTROSE/WATER 1 100ML.BAG IVPB SCH (12:30)
[2024-10-16 16:39] LABS: Glucose,Whole Blood 139 mg/dL (70-110)
[2024-10-16] MEDS: ALBUTEROL NEBULIZED 2.5 MG/3 ML INHALATION PRN (17:57)
[2024-10-16 20:56] LABS: Glucose,Whole Blood 160 mg/dL (70-110)
[2024-10-17 06:18] LABS: Glucose,Whole Blood 126 mg/dL (70-110)
[2024-10-17 08:51] VITALS: BP 144/82; PULSE 92; RESP 16; TEMP 97.8
[2024-10-17 09:12] LABS: BUN/Creat Ratio 15.38 Ratio (12.00-20.00); Blood Urea Nitrogen 12.3 mg/dL (9.0-27.0); Calcium 7.9 mg/dL (8.7-10.3); Chloride 98 mmol/L (96-109); Glucose 120 mg/dL (70-110); Potassium 4.1 mmol/L (3.5-5.5); Sodium 132 mmol/L (135-145)
[2024-10-17 09:15] LABS: HGB 7.8 g/dL (12.0-15.0); MCH 26.4 pg (27.0-32.0); MCHC 31.2 g/dL (32.0-37.0); MCV 84.5 FL (80.0-97.0); Mean Platelet Volume 10.4 FL (9.5-12.2); NRBC Per 100 WBC 0 X 10*3/uL (0.00-0.01); Platelet Count 283 X 10*3/uL (140-440); RBC 2.96 X 10*6/uL (4.10-5.20); RDW 14.6 % (11.5-14.5); WBC 7.96 X 10*3/uL (4.50-10.00)
[2024-10-17 10:02] LABS: Magnesium 1.7 mg/dL (1.5-2.4)
--- NOTE | 2024-10-17 10:30 | P.DS ---
Providers Expected date of discharge: 10/17/24 Attending physician: Wojciech Segovia Consults: 10/15/24 08:50 Consult Physician Routine Consulting Provider: Rashaad Casas Consult Reason/Comments: medical management Do you want consulting provider notified?: Yes Primary care physician: Calli Corral MD - Discharge Diagnosis(es) (1) Osteoarthritis of left knee Current Visit: Yes Status: Acute (2) Status post total left knee replacement Current Visit: Yes Status: Acute Hospital Course: This is a 69-year-old female with known history of degenerative arthritis of the left knee. The patient presented for evaluation as an outpatient. After discussion and consideration patient elects to proceed with total knee arthroplasty. The patient is seen preoperatively by Dr. Segovia and medically cleared for surgery by their primary care physician. Patient is admitted to [facility] on 10/15/2024 for total knee arthroplasty. The procedure is performed without complication or sequelae. The patient is doing well postoperatively. Labs and vital signs are stable on day of discharge. On day of discharge patient's knee incision is healing well. There is minimal erythema. There is no drainage noted at this time. There is minimal soft tissue swelling to the knee. Patient has full foot and ankle motion without difficulty or pain. Calf is soft and nontender to palpation. Neurovascular status to the left lower extremity is intact. Patient is discharged home in good condition. Please see med rec for accurate list of home medications. Plan - Discharge Summary Discharge Rx Participant: No New Discharge Prescriptions: New Sennosides [Senokot] 2 tab PO DAILY PRN #60 tablet PRN Reason: Constipation Ketorolac [Toradol] 10 mg PO Q6HR #12 tab HYDROcodone/APAP 10-325MG [Altha 10-325] 1 tab PO Q4-6H PRN #30 tab PRN Reason: Pain Aspirin 325 mg PO BID #60 tab Continue metFORMIN HCL [Glucophage] 1,000 mg PO BID Pregabalin [Lyrica] 150 mg PO TID Sertraline [Zoloft] 100 mg PO HS DULoxetine HCL [Cymbalta] 30 mg PO QAM Omeprazole 20 mg PO HS hydroCHLOROthiazide 25 mg PO QAM Simvastatin 40 mg PO HS Fenofibrate 160 mg PO HS Labetalol [Trandate] 100 mg PO BID Cyclobenzaprine [Flexeril] 10 mg PO TID PRN #15 tab PRN Reason: Muscle Spasm Lidocaine 5% Patch [Lidoderm 5% Patch] 1 patch TOPICAL DAILY 7 Days #7 patch Losartan Potassium 50 mg PO HS Albuterol Inhaler [Ventolin Hfa Inhaler] 1 - 2 puff INHALATION Q6H PRN PRN Reason: Wheezing No Action Aspirin 325 mg PO HS HYDROcodone/APAP 10-325MG [Altha 10-325] 1 tab PO Q6H PRN PRN Reason: Pain Discharge Medication List Aspirin 325 mg PO HS 10/19/18 [History] DULoxetine HCL [Cymbalta] 30 mg PO QAM 10/19/18 [History] Fenofibrate 160 mg PO HS 10/19/18 [History] Labetalol [Trandate] 100 mg PO BID 10/19/18 [History] Omeprazole 20 mg PO HS 10/19/18 [History] Pregabalin [Lyrica] 150 mg PO TID 10/19/18 [History] Sertraline [Zoloft] 100 mg PO HS 10/19/18 [History] Simvastatin 40 mg PO HS 10/19/18 [History] hydroCHLOROthiazide 25 mg PO QAM 10/19/18 [History] metFORMIN HCL [Glucophage] 1,000 mg PO BID 10/19/18 [History] Cyclobenzaprine [Flexeril] 10 mg PO TID PRN #15 tab 09/14/24 [Rx] Lidocaine 5% Patch [Lidoderm 5% Patch] 1 patch TOPICAL DAILY 7 Days #7 patch 09/14/24 [Rx] Albuterol Inhaler [Ventolin Hfa Inhaler] 1 - 2 puff INHALATION Q6H PRN 10/11/24 [History] HYDROcodone/APAP 10-325MG [Altha 10-325] 1 tab PO Q6H PRN 10/11/24 [History] Losartan Potassium 50 mg PO HS 10/11/24 [History] Aspirin 325 mg PO BID #60 tab 10/15/24 [Rx] Sennosides [Senokot] 2 tab PO DAILY PRN #60 tablet 10/15/24 [Rx] HYDROcodone/APAP 10-325MG [Altha 10-325] 1 tab PO Q4-6H PRN #30 tab 10/17/24 [Rx] Ketorolac [Toradol] 10 mg PO Q6HR #12 tab 10/17/24 [Rx] Follow up Appointment(s)/Referral(s): Wojciech Segovia DO [Doctor of Osteopathic Medicine] - 10/28/24 1:15 pm (with Kaye) Activity/Diet/Wound Care/Special Instructions: *Call [facility] at [phone] to set up your outpatient physical therapy to begin as soon as possible once home. Weightbearing as tolerated with a walker. Leave dressing intact. Dressing may be removed by home care nurse or by patient in 7 days. Then change dressing twice daily until follow up. May shower with initial dressing intact and after removal. If dressing become saturated, please remove. Recommend use of compression stockings daily until follow up to help prevent swelling and blood clots. May remove at night before sleeping. Please take aspirin 325mg twice daily for 30 days to prevent blood clots. Please follow up with [facility] and call with any questions or concerns, . Discharge Disposition: HOME WITH HOME HEALTH SERVICES
[2024-10-17] MEDS: MAGNESIUM OXIDE 400 MG TAB PO STA (11:11)
[2024-10-17 11:53] LABS: Glucose,Whole Blood 106 mg/dL (70-110)
--- NOTE | 2024-10-17 12:16 | P.PN ---
Subjective Progress Note Date: 10/17/24 Hospital course: Patient is a very pleasant 69-year-old female with a past medical history of hypertension, hyperlipidemia, fibromyalgia, rheumatoid arthritis with chronic pain peripheral neuropathy, GERD, and [id number] diabetes mellitus. She is currently admitted under orthopedic surgery team and is status post elective left total knee arthroplasty secondary to severe osteoarthritis of left knee. Surgical procedure completed by Dr. Segovia. We were consulted for medical management throughout hospitalization. Physical exam: Vital signs reviewed and stable. General: Nontoxic, no distress and appears stated age. Derm: Skin warm and dry, normal coloration for ethnicity. Head: Atraumatic, normocephalic and symmetric. Eyes: EOM's intact, no lid lag, and anicteric sclera Mouth: no lip lesions, mucus membranes moist Cardiovascular: regular rate and rhythm with normal S1S2, no murmur, positive posterior tibial pulses bilaterally, and cap refill < 2 seconds. Lungs: Respirations even, regular, and unlabored on room air. Lungs CTA bilaterally, no rhonchi, no rales, no wheezing, and no accessory muscle usage. Abdominal: soft, nontender to palpation, no guarding, no appreciable organomegal y Ext: No gross muscle atrophy, no edema, no contractures. Movement and sensation intact. Patient with postoperative dressing/Kevin wrap in place left knee. Neuro: Speech clear, face symmetrical and CN II-XII grossly intact with no noted focal neuro deficits Psych: Alert and oriented to person, place, time, and situation. Appropriate and pleasant affect. Assessment and Plan of Care: Status post left total knee arthroplasty -Management per primary admitting orthopedic surgery team including DVT prophylaxis, pain management, wound/dressing management, weightbearing, and PT/OT. -Patient currently on DVT prophylaxis with aspirin 325 mg twice daily. Severe hypomagnesemia -Magnesium initially resulted as a critical value of 0.9 and patient received magnesium sulfate 4 g IVPB with repeat magnesium of 2.0 and then 1.7.. Order placed for mag ox 4 mg p.o. x 1 dose and patient discharged home with Mag-Ox 400 mg daily. Acute postoperative blood loss anemia -Hemoglobin stable at 7.8 this morning. Hypertension -Monitor vital signs and patient to continue daily medication regimen with hydrochlorothiazide 25 mg daily, labetalol 100 mg twice daily, and losartan 50 mg nightly. Hyperlipidemia -Patient to continue atorvastatin 20 mg nightly and fenofibrate 160 mg nightly. Bob-[id number] diabetes mellitus with hyperglycemia -Hold metformin and placed patient on glycemic protocol with NovoLog sliding scale. Fibromyalgia Rheumatoid arthritis Chronic pain -Continue Flexeril 10 mg 3 times daily as needed for muscle spasms and Lyrica 150 mg 3 times daily. Depression with anxiety -Continue Zoloft 100 mg nightly and Cymbalta 30 mg daily. Data reviewed: -Morning labs reviewed. CBC showing hemoglobin 7.8. BMP showing sodium 132, blood glucose 120, and magnesium 1.7. -Vital signs reviewed. Blood pressure 144/82, heart rate 92, respiratory rate 16, temp 97.8 F, and SpO2 of 96% on room air. Patient medically optimized for discharge once cleared by primary admitting orthopedic surgery team. Thank you for allowing us to participate in the care of this pleasant patient. Do not hesitate to contact us with questions. [facility] all hours of the day at [phone] or via [employer]. Patient was seen independently by Nurse Practitioner. This document was prepared using [employer] dictation software. Please allow for errors in cloth classer while rare they do occur. Zach Zayas NP rendered care for this patient independently, reviewed the findings and plan as documented in the note above and agree with plan. I did not physically speak with or examine the patient on this date. Objective - Vital Signs Vital signs: Vital Signs Temp 97.8 F 10/17/24 07:30 Pulse 72 10/17/24 08:12 Resp 16 10/17/24 07:30 BP 144/82 10/17/24 07:30 Pulse Ox 96 10/17/24 07:30 FiO2 Intake & Output 10/16/24 10/17/24 10/17/24 18:59 06:59 18:59 Intake Total 540 Balance 540 Intake: Oral 540 Other: # Voids 5 6 - Labs CBC & Chem 7: 10/17/24 03:53 10/17/24 03:53 Labs: Abnormal Lab Results - Last 24 Hours (Table) 10/16/24 10/16/24 10/16/24 Range/Units 11:23 16:35 20:55 RBC (4.10-5.20) X 10*6/uL Hgb (12.0-15.0) g/dL Hct (37.2-46.3) % MCH (27.0-32.0) pg MCHC (32.0-37.0) g/dL RDW (11.5-14.5) % Sodium (135-145) mmol/L Glucose (70-110) mg/dL POC Glucose (mg/dL) 121 H 139 H 160 H (70-110) mg/dL Calcium (8.7-10.3) mg/dL 10/17/24 10/17/24 10/17/24 Range/Units 03:53 03:53 06:16 RBC 2.96 L (4.10-5.20) X 10*6/uL Hgb 7.8 L (12.0-15.0) g/dL Hct 25.0 L (37.2-46.3) % MCH 26.4 L (27.0-32.0) pg MCHC 31.2 L (32.0-37.0) g/dL RDW 14.6 H (11.5-14.5) % Sodium 132 L (135-145) mmol/L Glucose 120 H (70-110) mg/dL POC Glucose (mg/dL) 126 H (70-110) mg/dL Calcium 7.9 L (8.7-10.3) mg/dL
== END 2024-10-17 13:38 | disposition home health service (06) ==
LOC: OR 07:29 → 4SSUR 10:39 → OR 10-17 13:38
PROVIDERS: ATTEND Orthopaedic Surgery
DX: M17.12 Unilateral primary osteoarthritis, left knee (principal)
CPT/HCPCS: 94640 ×2; 97161; 64999; 64448; 80048 ×2; 83735 ×2; 85025; 85027; 73560; 27447; C1713; C1776; C1751; J2250; J1100; J0690 ×3; J2405; J3010; J3475; J2795; J1885 ×2; J1171 ×3